=== PATIENT | male | born 1965 | race Caucasian/White ===

== ENCOUNTER 2019-04-04 08:43 | Inpatient (IN) | payer OTHER ==
[~2019-04-04] VITALS: Ht 193 cm; Wt 113.9 kg
[~2019-04-04 08:43] MED LIST: ASPI-612 PO; ATOR10TA60 PO; BENZ-8 PO; FENO160T PO; GLIP5TAB10 PO; INSU100I17 SQ; INSU100I27 SQ; LEVO500T59 PO; LISI-334 PO; METF500T16 PO; METO-239 PO; PRAS10TA9 PO
[2019-04-04] MEDS ORDERED: TAMSULOSIN 0.4 MG CAP.ER.24H. PO ONE (09:00)
[2019-04-04] MEDS ORDERED: ACETAMINOPHEN 500 MG TABLET PO ONE (09:00)
[2019-04-04] MEDS ORDERED: IV NORMAL SALINE 1000ML BAG 1,000 ML IV ONE ×3 (09:00→10:45)
[2019-04-04] MEDS ORDERED: ONDANSETRON PF 4 MG/2 ML VIAL. IV ONE (09:00)
--- NOTE | 2019-04-04 09:17 | PHYS DOC ---
Past Medical History Past Medical History: CAD, Diabetes-Type II, High Cholesterol, Hypertension Past Surgical History: Other Additional Past Surgical Histo: R ARM,CARDIAC STENTS X 3 Alcohol Use: None Drug Use: None Adult General Chief Complaint Chief Complaint: PAIN ON URINATION HPI HPI Patient is a 53 year old female with a history of diabetes type 2, hypertension, high cholesterol, CAD with stent placement in November 2018 who presents to the ED today complaining he is not feeling well. Patient states yesterday his had difficulty voiding, he states he has been voiding small amounts of urine since 2 AM waking up several times in the night to urinate. He is also complaining of dry heaving and left lower quadrant abdominal pain that occurred yesterday, he states right now in the ED he does not have any pain. Denies any fever. Denies any chest pain or shortness of breath. Review of Systems Review of Systems Constitutional: Denies fever or chills [] Eyes: Denies change in visual acuity, redness, or eye pain [] HENT: Denies nasal congestion or sore throat [] Respiratory: Denies cough or shortness of breath [] Cardiovascular: No additional information not addressed in HPI [] GI: Reports left lower quadrant abdominal pain, nausea/dry heaving, denies vomiting, bloody stools or diarrhea [] : Reports difficulty voiding, urgency, denies dysuria or hematuria [] Musculoskeletal: Denies back pain or joint pain [] Integument: Denies rash or skin lesions [] Neurologic: Denies headache, focal weakness or sensory changes [] All other systems were reviewed and found to be within normal limits, except as documented in this note. Current Medications Current Medications Current Medications Medications (Trade) Dose Ordered Sig/Tristen Start Time Stop Time Status Last Admin Dose Admin Acetaminophen (Tylenol) 650 mg PRN Q4HRS PRN 04/04/19 10:45 04/05/19 10:44 Ciprofloxacin/ Dextrose 200 ml @ 200 mls/hr 1X ONCE 04/04/19 10:45 04/04/19 11:44 04/04/19 10:21 200 MLS/HR Fentanyl Citrate (Fentanyl 2ml Vial) 50 mcg PRN Q1HR PRN 04/04/19 10:45 04/05/19 10:44 Ondansetron HCl (Zofran) 4 mg PRN Q8HRS PRN 04/04/19 10:45 04/05/19 10:44 Sodium Chloride 1,000 ml @ 125 mls/hr 1X ONCE 04/04/19 10:45 04/04/19 18:44 Tamsulosin HCl (Flomax) 0.4 mg 1X ONCE 04/04/19 09:00 04/04/19 09:04 DC 04/04/19 09:23 0.4 MG Allergies Allergies Allergies Coded Allergies Type Severity Reaction Last Updated Verified arginine Adverse Reaction Mild N/V 04/04/19 Yes cefixime Adverse Reaction Mild N/V 04/04/19 Yes ceftazidime Adverse Reaction Mild N/V 04/04/19 Yes Physical Exam Physical Exam Constitutional: ill appearing patient, no acute distress, non-toxic appearance. [] HENT: Normocephalic, atraumatic, bilateral external ears normal, oropharynx moist, no oral exudates, nose normal. [] Eyes: PERRLA, EOMI, conjunctiva normal, no discharge. [] Neck: Normal range of motion, no tenderness, supple, no stridor. [] Cardiovascular:Heart rate regular rhythm, no murmur [] Lungs & Thorax: Bilateral breath sounds clear to auscultation [] Abdomen: Obese abdomen. Bowel sounds normal, soft, no tenderness, no masses, no pulsatile masses. [] Skin: Warm, dry, no erythema, no rash. Bruising noted on the left lower quadrant. Back: No tenderness, no CVA tenderness. [] Extremities: No tenderness, no cyanosis, no clubbing, ROM intact, no edema. [] Neurologic: Alert and oriented X 3, normal motor function, normal sensory function, no focal deficits noted. [] Psychologic: Affect normal, judgement normal, mood normal. [] Current Patient Data Vital Signs Vital Signs Date Time Temp Pulse Resp B/P (MAP) Pulse Ox O2 Delivery O2 Flow Rate FiO2 04/04/19 10:43 91 22 144/75 (98) 97 Room Air 04/04/19 08:48 99.1 99.1 Lab Values Laboratory Tests Test 04/04/19 09:08 04/04/19 09:13 White Blood Count 10.9 x10^3/uL (4.0-11.0) Red Blood Count 4.92 x10^6/uL (4.30-5.70) Hemoglobin 13.9 g/dL (13.0-17.5) Hematocrit 39.4 % (39.0-53.0) Mean Corpuscular Volume 80 fL (79-100) Mean Corpuscular Hemoglobin 28 pg (25-35) Mean Corpuscular Hemoglobin Concent 35 g/dL (31-37) Red Cell Distribution Width 14.1 % (11.5-14.5) Platelet Count 190 x10^3/uL (140-400) Neutrophils (%) (Auto) 80 % (31-73) H Lymphocytes (%) (Auto) 8 % (24-48) L Monocytes (%) (Auto) 12 % (0-9) H Eosinophils (%) (Auto) 0 % (0-3) Basophils (%) (Auto) 0 % (0-3) Neutrophils # (Auto) 8.7 x10^3uL (1.8-7.7) H Lymphocytes # (Auto) 0.9 x10^3/uL (1.0-4.8) L Monocytes # (Auto) 1.3 x10^3/uL (0.0-1.1) H Eosinophils # (Auto) 0.0 x10^3/uL (0.0-0.7) Basophils # (Auto) 0.0 x10^3/uL (0.0-0.2) Prothrombin Time 13.7 SEC (11.7-14.0) Prothrombin Time INR 1.1 (0.8-1.1) PTT 35 SEC (24-38) D-Dimer (Taisha) 1.59 ug/mlFEU (0.00-0.50) H Sodium Level 124 mmol/L (136-145) L Potassium Level 3.9 mmol/L (3.5-5.1) Chloride Level 89 mmol/L (98-107) L Carbon Dioxide Level 20 mmol/L (21-32) L Anion Gap 15 (6-14) H Blood Urea Nitrogen 16 mg/dL (8-26) Creatinine 1.0 mg/dL (0.7-1.3) Estimated GFR (Cockcroft-Gault) 78.5 BUN/Creatinine Ratio 16 (6-20) Glucose Level 215 mg/dL (70-99) H Lactic Acid Level 1.0 mmol/L (0.4-2.0) Calcium Level 8.4 mg/dL (8.5-10.1) L Magnesium Level 2.1 mg/dL (1.8-2.4) Total Bilirubin 0.6 mg/dL (0.2-1.0) Aspartate Amino Transferase (AST) 26 U/L (15-37) Alanine Aminotransferase (ALT) 35 U/L (16-63) Alkaline Phosphatase 49 U/L (46-116) Creatine Kinase 90 U/L (39-308) Creatine Kinase MB (Mass) < 0.5 ng/mL (0.0-3.6) Creatine Kinase MB Relative Index % (0-4) Troponin I Quantitative < 0.017 ng/mL (0.000-0.055) YJ-Hmp-X-Type Natriuretic Peptide 229 pg/mL (0-124) H Total Protein 6.7 g/dL (6.4-8.2) Albumin 3.1 g/dL (3.4-5.0) L Albumin/Globulin Ratio 0.9 (1.0-1.7) L Lipase 298 U/L (73-393) Urine Collection Type Unknown Urine Color Yellow Urine Clarity Hazy Urine pH 6.5 Urine Specific [place] 1.010 Urine Protein 100 mg/dL (NEG-TRACE) Urine Glucose (UA) 500 mg/dL (NEG) Urine Ketones (Stick) 15 mg/dL (NEG) Urine Blood Large (NEG) Urine Nitrite Negative (NEG) Urine Bilirubin Negative (NEG) Urine Urobilinogen Dipstick 0.2 mg/dL (0.2 mg/dL) Urine Leukocyte Esterase Moderate (NEG) Urine RBC 20-40 /HPF (0-2) Urine WBC >40 /HPF (0-4) Urine Bacteria Moderate /HPF (0-FEW) Laboratory Tests 04/04/19 09:08 Laboratory Tests 04/04/19 09:08 EKG EKG 09:[address] Irwin sinus tachycardia HR 107 anteroseptal lead inversion hx of STEMI in November. [] Radiology/Procedures Radiology/Procedures []PROCEDURE: PORTABLE CHEST 1V Portable chest, 04/04/2019: HISTORY: Fever Comparison is made to a study from 12/07/2018. The heart size and pulmonary vascularity are within normal limits. There is a possible stent overlying the left side of the heart. There are scattered calcified granulomata in the lungs. No acute infiltrate is seen. There is no evidence of pleural fluid. IMPRESSION: No acute cardiopulmonary abnormality is detected. Electronically signed by: Andrew Booth MD (04/04/2019 9:35 AM) [facility] DICTATED and SIGNED BY: ANDREW BOOTH MD DATE: 04/04/19 0935 Course & Med Decision Making Course & Med Decision Making Pertinent Labs and Imaging studies reviewed. (See chart for details) This is a 53-year-old male patient presenting to the ED today complaining of difficulty urinating since 2 AM this morning. On arrival to the ED temperature 99.1 heart rate 113, respiration 28 on room air, blood pressure 143/80, O2 sats 100% on room air. CBC with a normal WBC but noted for a left shift. CMP with sodium of 124, glucose of 215 with anion gap of 15, creatinine 1.0, BUN of 16, lactic 1.0. Urine noted for moderate amount of leukocytes and large amount of blood. D-dimer 1.59. Patient is on the second liter of IV fluids. He was also given Flomax and Cipro. He has voided over 300 mL of urine so far. CT of the abdomen and pelvic is pending, CTA chest is pending 10:[address] [place] who accepted patient for admission. 11:11 CT of the abdomen and pelvic was noted for cystitis with ascending infection to the kidneys-pyelonephritis Dragon Disclaimer Dragon Disclaimer This electronic medical record was generated, in whole or in part, using a voice recognition dictation system. Departure Departure Impression: Primary Impression: Hyperglycemia Additional Impressions: Hyponatremia Pyelonephritis Tachycardia Disposition: ADMITTED INPATIENT Condition: STABLE Referrals: GEMMA NOYOLA MD (PCP) Problem Qualifiers CHINMAY KELLEY [employer]ER INSPECTOR Apr 04, 2019 09:17
[2019-04-04 09:22] LABS: BASO % 0 % (0-3); EOS % 0 % (0-3); HEMATOCRIT 39.4 % (39.0-53.0); HEMOGLOBIN 13.9 g/dL (13.0-17.5); LYMPH # 0.9 x10^3/uL (1.0-4.8); LYMPH % 8 % (24-48); MEAN CORPUSCULAR HEMOGLOBIN 28 pg (25-35); MEAN CORPUSCULAR HGB CONC 35 g/dL (31-37); MEAN CORPUSCULAR VOLUME 80 fL (79-100); MONO # 1.3 x10^3/uL (0.0-1.1); MONO % 12 % (0-9); NEUT # 8.7 x10^3uL (1.8-7.7); NEUT % 80 % (31-73); PLATELET COUNT 190 x10^3/uL (140-400); RED BLOOD COUNT 4.92 x10^6/uL (4.30-5.70); RED CELL DISTRIBUTION WIDTH 14.1 % (11.5-14.5); WHITE BLOOD COUNT 10.9 x10^3/uL (4.0-11.0)
[2019-04-04 09:32] LABS: COLOR,URINE YELLOW
[2019-04-04 09:33] LABS: BILIRUBIN,URINE NEGATIVE (NEG); CLARITY,URINE HAZY; NITRITE,URINE NEGATIVE (NEG); PH,URINE 6.5; PROTEIN,URINE 100 mg/dL (NEG-TRACE); UROBILINOGEN,URINE 0.2 mg/dL (0.2 mg/dL)
[2019-04-04 09:33] LABS: PROTHROMBIN TIME PATIENT 13.7 SEC (11.7-14.0)
[2019-04-04 09:34] LABS: CALCIUM 8.4 mg/dL (8.5-10.1); GFR 78.5; POTASSIUM 3.9 mmol/L (3.5-5.1)
[2019-04-04 09:34] LABS: BACTERIA,URINE MODERATE /HPF (0-FEW); RBC,URINE 20-40 /HPF (0-2); WBC,URINE >40 /HPF (0-4)
--- NOTE | 2019-04-04 09:38 | RAD ---
Portable chest, 04/04/2019: HISTORY: Fever Comparison is made to a study from 12/07/2018. The heart size and pulmonary vascularity are within normal limits. There is a possible stent overlying the left side of the heart. There are scattered calcified granulomata in the lungs. No acute infiltrate is seen. There is no evidence of pleural fluid. IMPRESSION: No acute cardiopulmonary abnormality is detected. Electronically signed by: Andrew Booth MD (04/04/2019 9:35 AM) [facility]
[2019-04-04 09:40] LABS: ALBUMIN 3.1 g/dL (3.4-5.0); ALBUMIN/GLOBULIN RATIO 0.9 (1.0-1.7); MAGNESIUM 2.1 mg/dL (1.8-2.4); TOTAL BILIRUBIN 0.6 mg/dL (0.2-1.0); TOTAL PROTEIN 6.7 g/dL (6.4-8.2)
[2019-04-04 09:56] LABS: CREATINE KINASE 90 U/L (39-308)
--- NOTE | 2019-04-04 10:33 | EKG ---
[facility] [address] [place] [address] Test Date: 2019-04-04 Test Time: 09:00:46 Pat Name: ABEBA KESSLER Department: Room: Gender: Clinical Trials Assistant: : [id number] Requested By: CHINMAY KELLEY Order Number: [id number] Reading MD: Measurements Intervals [place] Rate: 107 P: -1 MS: 166 QRS: 19 QRSD: 98 T: 17 QT: 330 QTc: 445 Interpretive Statements SINUS TACHYCARDIA OTHERWISE NORMAL ECG No previous ECG available for comparison
[2019-04-04] MEDS ORDERED: ACETAMINOPHEN 325 MG TABLET. PO PRN (10:45)
[2019-04-04] MEDS ORDERED: ONDANSETRON PF 4 MG/2 ML VIAL. IV PRN (10:45)
[2019-04-04] MEDS ORDERED: fentaNYL PF VIAL 100 MCG/2 ML VIAL IV PRN (10:45)
[2019-04-04] MEDS ORDERED: CIPROFLOXACIN 400MG PREMIX 200 ML IV ONE (10:45)
--- NOTE | 2019-04-04 11:00 | RAD ---
EXAM: CT Abdomen and Pelvis without IV contrast CLINICAL HISTORY: Flank pain, evaluate for nephrolithiasis. Pelvic pain.. COMPARISON: none TECHNIQUE: Helical CT of the abdomen and pelvis without intravenous contrast. Axial, coronal and sagittal reformatted images were generated. PQRS compliance statement - One or more of the following individualized dose reduction techniques were utilized for this study: 1. Automated exposure control 2. Adjustment of the mA and/or kV according to patient size 3. Use of iterative reconstruction technique FINDINGS: Lack of intravenous contrast limits evaluation of solid organs, vasculature, and lymph nodes. Lower chest: Dependent opacities in the lower lobes bilaterally likely atelectasis. Calcified granuloma in the bilateral lower lobes. Abdomen and Pelvis: Liver is enlarged measuring approximately 23 cm in length. No definite liver lesion Gallbladder is normal. No biliary ductal dilatation. Pancreas is unremarkable. Adrenal glands are normal. Spleen is unremarkable. Kidneys are grossly normal in size and shape. No renal tract calculus. Diffuse fat infiltration about the bladder wall, bilateral ureters and bilateral kidneys may be seen with cystitis and ascending infection-pyelonephritis. No hydronephrosis or hydroureter. Fat-containing right inguinal hernia. Fat-containing small periumbilical hernia. No small or large bowel dilatation. Appendix is normal. No evidence of bowel obstruction. No abdominal or pelvic ascites. Abdominal pelvic lymphadenopathy. Bones: Osseous structures are grossly unremarkable. IMPRESSION: 1. Inflammatory changes and wall thickening of the bladder as well as the ureters and kidneys bilaterally is most consistent with cystitis and ascending infection- pyelonephritis. 2. Hepatomegaly Electronically signed by: Enrique Navarro MD (04/04/2019 10:57 AM) [id number]
[2019-04-04] MEDS ORDERED: IOHEXOL 350 MG/ML 100 ML VIAL. IV ONE (11:15)
[2019-04-04] MEDS ORDERED: CONTRAST GIVEN. MC PRN (11:30)
[2019-04-04] MEDS ORDERED: DEXTROSE 50% 25 GM / 50ML DISP.SYRIN. IV PRN (11:45)
[2019-04-04] MEDS: IV NORMAL SALINE 1000ML BAG 1,000 ML IV SCH ×2 (11:45→20:52)
--- NOTE | 2019-04-04 11:52 | RAD ---
EXAM: CT chest with contrast - pulmonary embolus protocol CLINICAL HISTORY: Shortness of breath, evaluate for pulmonary embolus. COMPARISON: None. TECHNIQUE: CT of the chest following the administration of intravenous contrast during the pulmonary arterial phase. Axial, coronal and sagittal reformatted images were generated including MIP images. ---PQRS compliance statement - One or more of the following individualized dose reduction techniques were utilized for this study: 1. Automated exposure control 2. Adjustment of the mA and/or kV according to patient size 3. Use of iterative reconstruction technique--- FINDINGS: CHEST: Diagnostic quality: Suboptimal. Pulmonary emboli: No pulmonary emboli to the level of the lobar branches. More peripheral vessels are not well assessed. Right heart strain: None Pulmonary arteries: Normal in caliber. Heart is mildly enlarged. Coronary artery calcifications are seen. No pericardial effusion. No pleural effusion or pneumothorax. No mediastinal or hilar lymphadenopathy. No axillary lymphadenopathy. Dependent opacities in the lower lobes bilaterally likely scarring/atelectasis. Calcified granulomas are seen bilaterally. Visualized Upper abdomen: Visualized upper abdomen is grossly unremarkable. Bones: Degenerative changes of the spine are seen. IMPRESSION: Exam is limited by contrast bolus timing. Within these constraints no pulmonary embolus is seen to the level of the lobar branches. The peripheral vessels are not well assessed. Electronically signed by: Enrique Navarro MD (04/04/2019 11:49 AM) [id number]
[2019-04-04] MEDS: INSULIN LISPRO 300 UNITS/3 ML INSULN.PEN. SQ SCH ×2 (12:00→18:17)
[2019-04-04] MEDS ORDERED: METF500T9 PO (12:54)
[2019-04-04 12:59] VITALS: BP 148/79
[2019-04-04 15:30] VITALS: BP 151/79
[2019-04-04] MEDS ORDERED: METF500T16 PO (16:03)
[2019-04-04] MEDS ORDERED: ATOR40TA59 PO (16:03)
--- NOTE | 2019-04-04 16:09 | PDOC ---
PROGRESS NOTES Subjective Subjective Patient reports he has been urinating without difficulty. Just feels tired. Objective Objective Vital Signs Date Time Temp Pulse Resp B/P (MAP) Pulse Ox O2 Delivery O2 Flow Rate FiO2 04/04/19 15:30 99.0 84 18 151/79 (103) 96 Room Air 99.0 Physical Exam Abdomen: Normal bowel sounds, Soft, No tenderness Heart: Regular rate Extremities: No edema General: Alert, Oriented X3, No acute distress Lungs: Clear to auscultation Assessment Assessment Problems Medical Problems: (1) Hyperglycemia Status: Acute (2) Hyponatremia Status: Acute (3) Pyelonephritis Status: Acute (4) Tachycardia Status: Acute (5) UTI (urinary tract infection) Status: Acute Plan Plan of Care 1. Sepsis with UTI - started on abx, urine and blood cultures pending. Urinary hesitancy resolved. 2. hyponatremia - patient is not on a diuretic that could cause this. Did try drinking a lot of water early this morning to help with urination. Has not had hyponatremia on office labs. Continue IV NS overnight and check lab in AM. 3. DM2 - has been controlled, continue home medication. 4. HTN - resume home meds. 5. hx CAD - stable, continue home meds. 6. BPH - patient reports he has chronic nocturia x2. Recent PSA in our office was WNL. Will start Flomax to help with this. Comment Review of Relevant I have reviewed the following items lety (where applicable) has been applied. Labs Laboratory Tests Test 04/04/19 09:08 04/04/19 09:13 04/04/19 12:26 04/04/19 13:27 White Blood Count 10.9 x10^3/uL (4.0-11.0) Red Blood Count 4.92 x10^6/uL (4.30-5.70) Hemoglobin 13.9 g/dL (13.0-17.5) Hematocrit 39.4 % (39.0-53.0) Mean Corpuscular Volume 80 fL (79-100) Mean Corpuscular Hemoglobin 28 pg (25-35) Mean Corpuscular Hemoglobin Concent 35 g/dL (31-37) Red Cell Distribution Width 14.1 % (11.5-14.5) Platelet Count 190 x10^3/uL (140-400) Neutrophils (%) (Auto) 80 % (31-73) Lymphocytes (%) (Auto) 8 % (24-48) Monocytes (%) (Auto) 12 % (0-9) Eosinophils (%) (Auto) 0 % (0-3) Basophils (%) (Auto) 0 % (0-3) Neutrophils # (Auto) 8.7 x10^3uL (1.8-7.7) Lymphocytes # (Auto) 0.9 x10^3/uL (1.0-4.8) Monocytes # (Auto) 1.3 x10^3/uL (0.0-1.1) Eosinophils # (Auto) 0.0 x10^3/uL (0.0-0.7) Basophils # (Auto) 0.0 x10^3/uL (0.0-0.2) Prothrombin Time 13.7 SEC (11.7-14.0) Prothromb Time International Ratio 1.1 (0.8-1.1) Activated Partial Thromboplast Time 35 SEC (24-38) D-Dimer (Taisha) 1.59 ug/mlFEU (0.00-0.50) Sodium Level 124 mmol/L (136-145) Potassium Level 3.9 mmol/L (3.5-5.1) Chloride Level 89 mmol/L (98-107) Carbon Dioxide Level 20 mmol/L (21-32) Anion Gap 15 (6-14) Blood Urea Nitrogen 16 mg/dL (8-26) Creatinine 1.0 mg/dL (0.7-1.3) Estimated GFR (Cockcroft-Gault) 78.5 BUN/Creatinine Ratio 16 (6-20) Glucose Level 215 mg/dL (70-99) Lactic Acid Level 1.0 mmol/L (0.4-2.0) 1.0 mmol/L (0.4-2.0) Calcium Level 8.4 mg/dL (8.5-10.1) Magnesium Level 2.1 mg/dL (1.8-2.4) Total Bilirubin 0.6 mg/dL (0.2-1.0) Aspartate Amino Transf (AST/SGOT) 26 U/L (15-37) Alanine Aminotransferase (ALT/SGPT) 35 U/L (16-63) Alkaline Phosphatase 49 U/L (46-116) Creatine Kinase 90 U/L (39-308) Creatine Kinase MB (Mass) < 0.5 ng/mL (0.0-3.6) Creatine Kinase MB Relative Index % (0-4) Troponin I Quantitative < 0.017 ng/mL (0.000-0.055) RB-Ace-A-Type Natriuretic Peptide 229 pg/mL (0-124) Total Protein 6.7 g/dL (6.4-8.2) Albumin 3.1 g/dL (3.4-5.0) Albumin/Globulin Ratio 0.9 (1.0-1.7) Lipase 298 U/L (73-393) Urine Collection Type Unknown Urine Color Yellow Urine Clarity Hazy Urine pH 6.5 Urine Specific [place] 1.010 Urine Protein 100 mg/dL (NEG-TRACE) Urine Glucose (UA) 500 mg/dL (NEG) Urine Ketones (Stick) 15 mg/dL (NEG) Urine Blood Large (NEG) Urine Nitrite Negative (NEG) Urine Bilirubin Negative (NEG) Urine Urobilinogen Dipstick 0.2 mg/dL (0.2 mg/dL) Urine Leukocyte Esterase Moderate (NEG) Urine RBC 20-40 /HPF (0-2) Urine WBC >40 /HPF (0-4) Urine Bacteria Moderate /HPF (0-FEW) Glucose (Fingerstick) 201 mg/dL (70-99) Laboratory Tests Test 04/04/19 09:08 04/04/19 09:13 04/04/19 12:26 04/04/19 13:27 White Blood Count 10.9 x10^3/uL (4.0-11.0) Red Blood Count 4.92 x10^6/uL (4.30-5.70) Hemoglobin 13.9 g/dL (13.0-17.5) Hematocrit 39.4 % (39.0-53.0) Mean Corpuscular Volume 80 fL (79-100) Mean Corpuscular Hemoglobin 28 pg (25-35) Mean Corpuscular Hemoglobin Concent 35 g/dL (31-37) Red Cell Distribution Width 14.1 % (11.5-14.5) Platelet Count 190 x10^3/uL (140-400) Neutrophils (%) (Auto) 80 % (31-73) Lymphocytes (%) (Auto) 8 % (24-48) Monocytes (%) (Auto) 12 % (0-9) Eosinophils (%) (Auto) 0 % (0-3) Basophils (%) (Auto) 0 % (0-3) Neutrophils # (Auto) 8.7 x10^3uL (1.8-7.7) Lymphocytes # (Auto) 0.9 x10^3/uL (1.0-4.8) Monocytes # (Auto) 1.3 x10^3/uL (0.0-1.1) Eosinophils # (Auto) 0.0 x10^3/uL (0.0-0.7) Basophils # (Auto) 0.0 x10^3/uL (0.0-0.2) Prothrombin Time 13.7 SEC (11.7-14.0) Prothromb Time International Ratio 1.1 (0.8-1.1) Activated Partial Thromboplast Time 35 SEC (24-38) D-Dimer (Taisha) 1.59 ug/mlFEU (0.00-0.50) Sodium Level 124 mmol/L (136-145) Potassium Level 3.9 mmol/L (3.5-5.1) Chloride Level 89 mmol/L (98-107) Carbon Dioxide Level 20 mmol/L (21-32) Anion Gap 15 (6-14) Blood Urea Nitrogen 16 mg/dL (8-26) Creatinine 1.0 mg/dL (0.7-1.3) Estimated GFR (Cockcroft-Gault) 78.5 BUN/Creatinine Ratio 16 (6-20) Glucose Level 215 mg/dL (70-99) Lactic Acid Level 1.0 mmol/L (0.4-2.0) 1.0 mmol/L (0.4-2.0) Calcium Level 8.4 mg/dL (8.5-10.1) Magnesium Level 2.1 mg/dL (1.8-2.4) Total Bilirubin 0.6 mg/dL (0.2-1.0) Aspartate Amino Transf (AST/SGOT) 26 U/L (15-37) Alanine Aminotransferase (ALT/SGPT) 35 U/L (16-63) Alkaline Phosphatase 49 U/L (46-116) Creatine Kinase 90 U/L (39-308) Creatine Kinase MB (Mass) < 0.5 ng/mL (0.0-3.6) Creatine Kinase MB Relative Index % (0-4) Troponin I Quantitative < 0.017 ng/mL (0.000-0.055) WM-Hrl-N-Type Natriuretic Peptide 229 pg/mL (0-124) Total Protein 6.7 g/dL (6.4-8.2) Albumin 3.1 g/dL (3.4-5.0) Albumin/Globulin Ratio 0.9 (1.0-1.7) Lipase 298 U/L (73-393) Urine Collection Type Unknown Urine Color Yellow Urine Clarity Hazy Urine pH 6.5 Urine Specific [place] 1.010 Urine Protein 100 mg/dL (NEG-TRACE) Urine Glucose (UA) 500 mg/dL (NEG) Urine Ketones (Stick) 15 mg/dL (NEG) Urine Blood Large (NEG) Urine Nitrite Negative (NEG) Urine Bilirubin Negative (NEG) Urine Urobilinogen Dipstick 0.2 mg/dL (0.2 mg/dL) Urine Leukocyte Esterase Moderate (NEG) Urine RBC 20-40 /HPF (0-2) Urine WBC >40 /HPF (0-4) Urine Bacteria Moderate /HPF (0-FEW) Glucose (Fingerstick) 201 mg/dL (70-99) Medications Current Medications Sodium Chloride 1,000 ml @ 1,000 mls/hr 1X ONCE IV Last administered on 04/04/19 09:17; Start 04/04/19 at 09:00; Stop 04/04/19 at 09:59; Status DC Ondansetron HCl (Zofran) 4 mg 1X ONCE IV Last administered on 04/04/19 09:22; Start 04/04/19 at 09:00; Stop 04/04/19 at 09:04; Status DC Acetaminophen (Tylenol) 1,000 mg 1X ONCE PO Last administered on 04/04/19 09:23; Start 04/04/19 at 09:00; Stop 04/04/19 at 09:04; Status DC Tamsulosin HCl (Flomax) 0.4 mg 1X ONCE PO Last administered on 04/04/19 09:23; Start 04/04/19 at 09:00; Stop 04/04/19 at 09:04; Status DC Sodium Chloride 1,000 ml @ 1,000 mls/hr 1X ONCE IV Last administered on 04/04/19at 10:19; Start 04/04/19 at 10:15; Stop 04/04/19 at 11:14; Status DC Ciprofloxacin/ Dextrose 200 ml @ 200 mls/hr 1X ONCE IV Last administered on 04/04/19at 10:21; Start 04/04/19 at 10:45; Stop 04/04/19 at 11:44; Status DC Ondansetron HCl (Zofran) 4 mg PRN Q8HRS PRN IV NAUSEA/VOMITING; Start 04/04/19 at 10:45; Stop 04/05/19 at 10:44 Fentanyl Citrate (Fentanyl 2ml Vial) 50 mcg PRN Q1HR PRN IV PAIN Last administered on 04/04/19at 12:42; Start 04/04/19 at 10:45; Stop 04/05/19 at 10:44 Acetaminophen (Tylenol) 650 mg PRN Q4HRS PRN PO FEVER; Start 04/04/19 at 10:45; Stop 04/05/19 at 10:44 Sodium Chloride 1,000 ml @ 125 mls/hr 1X ONCE IV Last administered on 04/04/19at 12:43; Start 04/04/19 at 10:45; Stop 04/04/19 at 18:44 Iohexol (Omnipaque 350 Mg/ml) 100 ml 1X ONCE IV Last administered on 04/04/19at 11:32; Start 04/04/19 at 11:15; Stop 04/04/19 at 11:17; Status DC Info (CONTRAST GIVEN -- Rx MONITORING) 1 each PRN DAILY PRN MC SEE COMMENTS; Start 04/04/19 at 11:30; Stop 04/06/19 at 11:29 Ciprofloxacin (Cipro) 500 mg BID PO ; Start 04/04/19 at 21:00 Insulin Human Lispro (HumaLOG) 0-9 UNITS TIDWMEALS SQ ; Start 04/04/19 at 12:00 Dextrose (Dextrose 50%-Water Syringe) 12.5 gm PRN Q15MIN PRN IV SEE COMMENTS; Start 04/04/19 at 11:45 Sodium Chloride 1,000 ml @ 100 mls/hr Q10H IV ; Start 04/04/19 at 11:45 Active Scripts Active Atorvastatin Calcium 40 Mg Tablet 1 Tab PO DAILY Metformin Hcl 500 Mg Tablet 500 Mg PO BIDWMEALS 30 Days Lisinopril 20 Mg Tablet 1 Tab PO DAILY 30 Days Fenofibrate 160 Mg Tablet 1 Tab PO DAILY 30 Days Glipizide 5 Mg Tablet 5 Mg PO BIDBFRMEAL 30 Days Aspirin Ec (Aspirin) 81 Mg Tablet.dr 81 Mg PO DAILYWBKFT 30 Days Metoprolol Succinate ( Xl ) (Metoprolol Succinate) 25 Mg Tab.er.24h 25 Mg PO DAILY 30 Days Effient (Prasugrel Hcl) 10 Mg Tablet 10 Mg PO DAILYWBKFT MDD 30 30 Days Vitals/I & O Vital Sign - Last 24 Hours 04/04/19 04/04/19 04/04/19 04/04/19 08:48 09:22 09:52 10:22 Temp 99.1 99.1 Pulse 113 106 98 94 Resp 28 24 25 23 B/P (MAP) 143/80 (101) 141/77 (98) 133/73 (93) 134/71 (92) Pulse Ox 100 96 98 97 O2 Delivery Room Air Room Air Room Air Room Air 04/04/19 04/04/19 04/04/19 04/04/19 10:43 11:13 11:34 12:42 Pulse 91 83 84 Resp 22 22 21 18 B/P (MAP) 144/75 (98) 137/78 (97) 141/83 (102) Pulse Ox 97 99 98 98 O2 Delivery Room Air Room Air Room Air Room Air 04/04/19 04/04/19 12:59 15:30 Temp 98.0 99.0 98.0 99.0 Pulse 72 84 Resp 20 18 B/P (MAP) 148/79 (102) 151/79 (103) Pulse Ox 98 96 O2 Delivery Room Air Room Air GEMMA NOYOLA MD Apr 04, 2019 16:09
--- NOTE | 2019-04-04 16:35 | HP ---
ADMIT DATE: 04/04/2019 CHIEF COMPLAINT: Dysuria and urinary hesitancy. HISTORY OF PRESENT ILLNESS: The patient is a 53-year-old male, who presented to the Emergency Room with the above complaint. He reported the onset of symptoms early in the morning of admission. He woke up feeling that he had to urinate, but was unable to pass any urine. He voided only very small amounts. He tried drinking a good amount of water to help with this, but was still not able to pass enough urine. He also had some lower abdominal pain and nausea. When seen in the Emergency Room, he was found to be mildly ill appearing. He was given one dose of Flomax and was able to urinate. Urine specimen showed evidence of infection with white blood cells greater than 40. He was also found to be hyponatremic with sodium of 124, treatment was started and he was admitted for further care. PAST MEDICAL HISTORY: Coronary artery disease, hypertension, hyperlipidemia, diabetes mellitus type 2. PAST SURGICAL HISTORY: Right upper extremity ORIF in 08/1994, cardiac stent placement in 11/2018. ALLERGIES: The patient is allergic to ARGININE, CEFIXIME and CEFTAZIDIME. HOME MEDICATIONS: Aspirin 81 mg daily, atorvastatin 40 mg daily, fenofibrate 160 mg daily, glipizide 5 mg b.i.d., lisinopril 20 mg daily, metformin 500 mg b.i.d., Toprol-XL 25 mg daily, Effient 10 mg daily. FAMILY HISTORY: Noncontributory. SOCIAL HISTORY: The patient is and lives at home with his family. He does not smoke cigarettes or drink alcohol to excess. He works as a logistics supply officer. REVIEW OF SYSTEMS: The patient denies fever or chills. He denies cough or shortness of breath. He denies chest pain or palpitations. He had some nausea with his initial illness this morning, but denies emesis or abdominal pain at this time. His blood sugars had been fairly well controlled at home until the past 1-2 days when they became elevated. He denies other episodes of urinary tract infection. He reports chronic nocturia x 2. PHYSICAL EXAMINATION: GENERAL: The patient is alert and oriented x 3, resting comfortably in bed, in no acute distress. HEENT: PERRL, EOMI, sclerae clear. Oropharynx, mucous membranes moist. NECK: Supple without lymphadenopathy. CHEST: Clear to auscultation. CARDIOVASCULAR: Regular rhythm without murmur. ABDOMEN: Soft, nontender, normoactive bowel sounds are present. EXTREMITIES: Without edema. ASSESSMENT AND PLAN: 1. Sepsis with urinary tract infection. The patient has been started on ciprofloxacin. Blood and urine cultures are pending. His urinary hesitancy resolved with treatment in the Emergency Room and he is now able to urinate without difficulty. 2. Hyponatremia. The patient is not on a diuretic that could cause this and he has not had hyponatremia on office labs. He did try drinking a lot of water early this morning to help with his urination and it is possible that this is what led to the hyponatremia. We will continue IV normal saline overnight and recheck lab in the morning. 3. Diabetes mellitus type 2, this has been controlled. Continue home medication, Sliding scale insulin has also been ordered. 4. Hypertension. Resume home medication. 5. History of coronary artery disease, this has been stable. Continue his usual medications. 6. Benign prostatic hypertrophy. The patient reports he does have chronic nocturia x 2. Recent PSA in our office was within normal limits. We will start him on daily Flomax to help with his symptoms. GEMMA NOYOLA MD DR: JYOTI/aden JOB#: [id number] / [id number] JEANNETTE
[2019-04-04] MEDS: ACETAMINOPHEN 500 MG TABLET PO PRN ×2 (16:48→23:37)
[2019-04-04] MEDS: glipiZIDE 5 MG TABLET PO SCH (16:49)
[2019-04-04 19:05] VITALS: BP 117/74
[2019-04-04] MEDS: ATORVASTATIN CALCIUM 40 MG TABLET. PO SCH (20:52)
[2019-04-04] MEDS: CIPROFLOXACIN HCL 250 MG TABLET. PO SCH (20:53)
[2019-04-04] MEDS: TAMSULOSIN 0.4 MG CAP.ER.24H. PO SCH (20:53)
[2019-04-04 23:44] VITALS: BP 109/71
[2019-04-05 03:05] VITALS: BP 113/69
[2019-04-05 06:11] LABS: BASO % 0 % (0-3); EOS % 0 % (0-3); HEMATOCRIT 36.5 % (39.0-53.0); HEMOGLOBIN 12.6 g/dL (13.0-17.5); LYMPH # 1.3 x10^3/uL (1.0-4.8); LYMPH % 17 % (24-48); MEAN CORPUSCULAR HEMOGLOBIN 28 pg (25-35); MEAN CORPUSCULAR HGB CONC 35 g/dL (31-37); MEAN CORPUSCULAR VOLUME 82 fL (79-100); MONO % 13 % (0-9); NEUT # 5.3 x10^3uL (1.8-7.7); NEUT % 70 % (31-73); PLATELET COUNT 174 x10^3/uL (140-400); RED BLOOD COUNT 4.45 x10^6/uL (4.30-5.70); RED CELL DISTRIBUTION WIDTH 14.3 % (11.5-14.5); WHITE BLOOD COUNT 7.6 x10^3/uL (4.0-11.0)
[2019-04-05 06:34] LABS: ALBUMIN 2.5 g/dL (3.4-5.0); ALBUMIN/GLOBULIN RATIO 0.6 (1.0-1.7); CALCIUM 8.5 mg/dL (8.5-10.1); GFR 78.5; POTASSIUM 4.2 mmol/L (3.5-5.1); TOTAL BILIRUBIN 0.4 mg/dL (0.2-1.0); TOTAL PROTEIN 6.6 g/dL (6.4-8.2)
[2019-04-05 07:00] VITALS: BP 129/73
[2019-04-05] MEDS: glipiZIDE 5 MG TABLET PO SCH ×2 (07:13→16:59)
[2019-04-05] MEDS: ACETAMINOPHEN 500 MG TABLET PO PRN ×2 (07:13→20:35)
[2019-04-05] MEDS: PRASUGREL 10 MG TABLET. PO SCH (08:05)
[2019-04-05] MEDS: FENOFIBRATE,MICRONIZED 134 MG CAPSULE PO SCH (08:05)
[2019-04-05] MEDS: CIPROFLOXACIN HCL 250 MG TABLET. PO SCH ×2 (08:05→20:34)
[2019-04-05] MEDS: LISINOPRIL 20 MG TABLET PO SCH (08:06)
[2019-04-05] MEDS: ASPIRIN ENTERIC COATED 81 MG TABLET.DR. PO SCH (08:06)
[2019-04-05] MEDS: METOPROLOL SUCC 24HR ER 25 MG TAB.ER.24H. PO SCH (08:06)
[2019-04-05] MEDS: INSULIN LISPRO 300 UNITS/3 ML INSULN.PEN. SQ SCH ×3 (08:08→17:01)
--- NOTE | 2019-04-05 09:40 | PDOC ---
PROGRESS NOTES Subjective Subjective Patient feels much better. Tolerating diet. still weak. Objective Objective Vital Signs Date Time Temp Pulse Resp B/P (MAP) Pulse Ox O2 Delivery O2 Flow Rate FiO2 04/05/19 08:06 79 129/73 04/05/19 07:21 Room Air 04/05/19 07:00 98.6 18 96 98.6 Intake and Output 04/05/19 07:00 Intake Total 4800 ml Output Total 675 ml Balance 4125 ml Intake Oral 1400 ml IV Total 2200 ml Blood Product IV Normal Saline Flush 1200 ml Output Urine Total 675 ml # Voids 12 Physical Exam Abdomen: Normal bowel sounds Heart: Regular rate Extremities: No edema General: Alert Lungs: Clear to auscultation Assessment Assessment Problems Medical Problems: (1) Hyperglycemia Status: Acute (2) Hyponatremia Status: Acute (3) Pyelonephritis Status: Acute (4) Tachycardia Status: Acute (5) UTI (urinary tract infection) Status: Acute 1. Sepsis with UTI 2. hyponatremia 3. DM2 4. HTN 5. hx CAD 6. BPH Plan Plan of Care Continue IVF Continue IV antibx await clx Continue Flomax Increase activity Follow labs Comment Review of Relevant I have reviewed the following items lety (where applicable) has been applied. Labs Laboratory Tests Test 04/04/19 09:08 04/04/19 09:13 04/04/19 12:26 04/04/19 13:27 White Blood Count 10.9 x10^3/uL (4.0-11.0) Red Blood Count 4.92 x10^6/uL (4.30-5.70) Hemoglobin 13.9 g/dL (13.0-17.5) Hematocrit 39.4 % (39.0-53.0) Mean Corpuscular Volume 80 fL (79-100) Mean Corpuscular Hemoglobin 28 pg (25-35) Mean Corpuscular Hemoglobin Concent 35 g/dL (31-37) Red Cell Distribution Width 14.1 % (11.5-14.5) Platelet Count 190 x10^3/uL (140-400) Neutrophils (%) (Auto) 80 % (31-73) Lymphocytes (%) (Auto) 8 % (24-48) Monocytes (%) (Auto) 12 % (0-9) Eosinophils (%) (Auto) 0 % (0-3) Basophils (%) (Auto) 0 % (0-3) Neutrophils # (Auto) 8.7 x10^3uL (1.8-7.7) Lymphocytes # (Auto) 0.9 x10^3/uL (1.0-4.8) Monocytes # (Auto) 1.3 x10^3/uL (0.0-1.1) Eosinophils # (Auto) 0.0 x10^3/uL (0.0-0.7) Basophils # (Auto) 0.0 x10^3/uL (0.0-0.2) Prothrombin Time 13.7 SEC (11.7-14.0) Prothromb Time International Ratio 1.1 (0.8-1.1) Activated Partial Thromboplast Time 35 SEC (24-38) D-Dimer (Taisha) 1.59 ug/mlFEU (0.00-0.50) Sodium Level 124 mmol/L (136-145) Potassium Level 3.9 mmol/L (3.5-5.1) Chloride Level 89 mmol/L (98-107) Carbon Dioxide Level 20 mmol/L (21-32) Anion Gap 15 (6-14) Blood Urea Nitrogen 16 mg/dL (8-26) Creatinine 1.0 mg/dL (0.7-1.3) Estimated GFR (Cockcroft-Gault) 78.5 BUN/Creatinine Ratio 16 (6-20) Glucose Level 215 mg/dL (70-99) Lactic Acid Level 1.0 mmol/L (0.4-2.0) 1.0 mmol/L (0.4-2.0) Calcium Level 8.4 mg/dL (8.5-10.1) Magnesium Level 2.1 mg/dL (1.8-2.4) Total Bilirubin 0.6 mg/dL (0.2-1.0) Aspartate Amino Transf (AST/SGOT) 26 U/L (15-37) Alanine Aminotransferase (ALT/SGPT) 35 U/L (16-63) Alkaline Phosphatase 49 U/L (46-116) Creatine Kinase 90 U/L (39-308) Creatine Kinase MB (Mass) < 0.5 ng/mL (0.0-3.6) Creatine Kinase MB Relative Index % (0-4) Troponin I Quantitative < 0.017 ng/mL (0.000-0.055) SA-Uiv-S-Type Natriuretic Peptide 229 pg/mL (0-124) Total Protein 6.7 g/dL (6.4-8.2) Albumin 3.1 g/dL (3.4-5.0) Albumin/Globulin Ratio 0.9 (1.0-1.7) Lipase 298 U/L (73-393) Urine Collection Type Unknown Urine Color Yellow Urine Clarity Hazy Urine pH 6.5 Urine Specific [place] 1.010 Urine Protein 100 mg/dL (NEG-TRACE) Urine Glucose (UA) 500 mg/dL (NEG) Urine Ketones (Stick) 15 mg/dL (NEG) Urine Blood Large (NEG) Urine Nitrite Negative (NEG) Urine Bilirubin Negative (NEG) Urine Urobilinogen Dipstick 0.2 mg/dL (0.2 mg/dL) Urine Leukocyte Esterase Moderate (NEG) Urine RBC 20-40 /HPF (0-2) Urine WBC >40 /HPF (0-4) Urine Bacteria Moderate /HPF (0-FEW) Glucose (Fingerstick) 201 mg/dL (70-99) Test 04/04/19 16:25 04/04/19 20:13 04/05/19 05:15 04/05/19 07:44 Glucose (Fingerstick) 182 mg/dL (70-99) 218 mg/dL (70-99) 192 mg/dL (70-99) White Blood Count 7.6 x10^3/uL (4.0-11.0) Red Blood Count 4.45 x10^6/uL (4.30-5.70) Hemoglobin 12.6 g/dL (13.0-17.5) Hematocrit 36.5 % (39.0-53.0) Mean Corpuscular Volume 82 fL (79-100) Mean Corpuscular Hemoglobin 28 pg (25-35) Mean Corpuscular Hemoglobin Concent 35 g/dL (31-37) Red Cell Distribution Width 14.3 % (11.5-14.5) Platelet Count 174 x10^3/uL (140-400) Neutrophils (%) (Auto) 70 % (31-73) Lymphocytes (%) (Auto) 17 % (24-48) Monocytes (%) (Auto) 13 % (0-9) Eosinophils (%) (Auto) 0 % (0-3) Basophils (%) (Auto) 0 % (0-3) Neutrophils # (Auto) 5.3 x10^3uL (1.8-7.7) Lymphocytes # (Auto) 1.3 x10^3/uL (1.0-4.8) Monocytes # (Auto) 1.0 x10^3/uL (0.0-1.1) Eosinophils # (Auto) 0.0 x10^3/uL (0.0-0.7) Basophils # (Auto) 0.0 x10^3/uL (0.0-0.2) Sodium Level 137 mmol/L (136-145) Potassium Level 4.2 mmol/L (3.5-5.1) Chloride Level 102 mmol/L (98-107) Carbon Dioxide Level 25 mmol/L (21-32) Anion Gap 10 (6-14) Blood Urea Nitrogen 13 mg/dL (8-26) Creatinine 1.0 mg/dL (0.7-1.3) Estimated GFR (Cockcroft-Gault) 78.5 BUN/Creatinine Ratio 13 (6-20) Glucose Level 222 mg/dL (70-99) Calcium Level 8.5 mg/dL (8.5-10.1) Total Bilirubin 0.4 mg/dL (0.2-1.0) Aspartate Amino Transf (AST/SGOT) 26 U/L (15-37) Alanine Aminotransferase (ALT/SGPT) 36 U/L (16-63) Alkaline Phosphatase 57 U/L (46-116) Total Protein 6.6 g/dL (6.4-8.2) Albumin 2.5 g/dL (3.4-5.0) Albumin/Globulin Ratio 0.6 (1.0-1.7) Laboratory Tests Test 04/04/19 12:26 04/04/19 13:27 04/04/19 16:25 04/04/19 20:13 Glucose (Fingerstick) 201 mg/dL (70-99) 182 mg/dL (70-99) 218 mg/dL (70-99) Lactic Acid Level 1.0 mmol/L (0.4-2.0) Test 04/05/19 05:15 04/05/19 07:44 White Blood Count 7.6 x10^3/uL (4.0-11.0) Red Blood Count 4.45 x10^6/uL (4.30-5.70) Hemoglobin 12.6 g/dL (13.0-17.5) Hematocrit 36.5 % (39.0-53.0) Mean Corpuscular Volume 82 fL (79-100) Mean Corpuscular Hemoglobin 28 pg (25-35) Mean Corpuscular Hemoglobin Concent 35 g/dL (31-37) Red Cell Distribution Width 14.3 % (11.5-14.5) Platelet Count 174 x10^3/uL (140-400) Neutrophils (%) (Auto) 70 % (31-73) Lymphocytes (%) (Auto) 17 % (24-48) Monocytes (%) (Auto) 13 % (0-9) Eosinophils (%) (Auto) 0 % (0-3) Basophils (%) (Auto) 0 % (0-3) Neutrophils # (Auto) 5.3 x10^3uL (1.8-7.7) Lymphocytes # (Auto) 1.3 x10^3/uL (1.0-4.8) Monocytes # (Auto) 1.0 x10^3/uL (0.0-1.1) Eosinophils # (Auto) 0.0 x10^3/uL (0.0-0.7) Basophils # (Auto) 0.0 x10^3/uL (0.0-0.2) Sodium Level 137 mmol/L (136-145) Potassium Level 4.2 mmol/L (3.5-5.1) Chloride Level 102 mmol/L (98-107) Carbon Dioxide Level 25 mmol/L (21-32) Anion Gap 10 (6-14) Blood Urea Nitrogen 13 mg/dL (8-26) Creatinine 1.0 mg/dL (0.7-1.3) Estimated GFR (Cockcroft-Gault) 78.5 BUN/Creatinine Ratio 13 (6-20) Glucose Level 222 mg/dL (70-99) Calcium Level 8.5 mg/dL (8.5-10.1) Total Bilirubin 0.4 mg/dL (0.2-1.0) Aspartate Amino Transf (AST/SGOT) 26 U/L (15-37) Alanine Aminotransferase (ALT/SGPT) 36 U/L (16-63) Alkaline Phosphatase 57 U/L (46-116) Total Protein 6.6 g/dL (6.4-8.2) Albumin 2.5 g/dL (3.4-5.0) Albumin/Globulin Ratio 0.6 (1.0-1.7) Glucose (Fingerstick) 192 mg/dL (70-99) Microbiology 04/04/19 Blood Culture - Preliminary, Resulted NO GROWTH AFTER 1 DAY Medications Current Medications Sodium Chloride 1,000 ml @ 1,000 mls/hr 1X ONCE IV Last administered on 04/04/19 09:17; Start 04/04/19 at 09:00; Stop 04/04/19 at 09:59; Status DC Ondansetron HCl (Zofran) 4 mg 1X ONCE IV Last administered on 04/04/19at 09:22; Start 04/04/19 at 09:00; Stop 04/04/19 at 09:04; Status DC Acetaminophen (Tylenol) 1,000 mg 1X ONCE PO Last administered on 04/04/19at 09:23; Start 04/04/19 at 09:00; Stop 04/04/19 at 09:04; Status DC Tamsulosin HCl (Flomax) 0.4 mg 1X ONCE PO Last administered on 04/04/19at 09:23; Start 04/04/19 at 09:00; Stop 04/04/19 at 09:04; Status DC Sodium Chloride 1,000 ml @ 1,000 mls/hr 1X ONCE IV Last administered on 04/04/19at 10:19; Start 04/04/19 at 10:15; Stop 04/04/19 at 11:14; Status DC Ciprofloxacin/ Dextrose 200 ml @ 200 mls/hr 1X ONCE IV Last administered on 04/04/19at 10:21; Start 04/04/19 at 10:45; Stop 04/04/19 at 11:44; Status DC Ondansetron HCl (Zofran) 4 mg PRN Q8HRS PRN IV NAUSEA/VOMITING; Start 04/04/19 at 10:45; Stop 04/05/19 at 10:44 Fentanyl Citrate (Fentanyl 2ml Vial) 50 mcg PRN Q1HR PRN IV PAIN Last administered on 04/04/19at 12:42; Start 04/04/19 at 10:45; Stop 04/05/19 at 10:44 Acetaminophen (Tylenol) 650 mg PRN Q4HRS PRN PO FEVER; Start 04/04/19 at 10:45; Stop 04/04/19 at 16:11; Status DC Sodium Chloride 1,000 ml @ 125 mls/hr 1X ONCE IV Last administered on 04/04/19at 12:43; Start 04/04/19 at 10:45; Stop 04/04/19 at 18:44; Status DC Iohexol (Omnipaque 350 Mg/ml) 100 ml 1X ONCE IV Last administered on 04/04/19at 11:32; Start 04/04/19 at 11:15; Stop 04/04/19 at 11:17; Status DC Info (CONTRAST GIVEN -- Rx MONITORING) 1 each PRN DAILY PRN MC SEE COMMENTS; Start 04/04/19 at 11:30; Stop 04/06/19 at 11:29 Ciprofloxacin (Cipro) 500 mg BID PO Last administered on 04/05/19at 08:05; Start 04/04/19 at 21:00 Insulin Human Lispro (HumaLOG) 0-9 UNITS TIDWMEALS SQ Last administered on 04/05/19 08:08; Start 04/04/19 at 12:00 Dextrose (Dextrose 50%-Water Syringe) 12.5 gm PRN Q15MIN PRN IV SEE COMMENTS; Start 04/04/19 at 11:45 Sodium Chloride 1,000 ml @ 100 mls/hr Q10H IV Last administered on 04/04/19 20:52; Start 04/04/19 at 11:45; Stop 04/05/19 at 07:00; Status DC Aspirin (Ecotrin) 81 mg DAILYWBKFT PO Last administered on 04/05/19 08:06; Start 04/05/19 at 08:00 Atorvastatin Calcium (Lipitor) 40 mg QHS PO Last administered on 04/04/19 20:52; Start 04/04/19 at 21:00 Glipizide (Glucotrol) 5 mg BIDBFRMEAL PO Last administered on 04/05/19at 07:13; Start 04/04/19 at 16:30 Lisinopril (Prinivil) 20 mg DAILY PO Last administered on 04/05/19 08:06; Start 04/05/19 at 09:00 Metoprolol Succinate (Toprol Xl) 25 mg DAILY PO Last administered on 04/05/19 08:06; Start 04/05/19 at 09:00 Fenofibrate (Lofibra) 134 mg DAILY PO Last administered on 04/05/19 08:05; Start 04/05/19 at 09:00 Metformin HCl (Glucophage) 500 mg BIDWMEALS PO ; Start 04/07/19 at 08:00 Prasugrel (Effient) 10 mg DAILYWBKFT PO Last administered on 04/05/19 08:05; Start 04/05/19 at 08:00 Acetaminophen (Tylenol) 1,000 mg PRN Q6HRS PRN PO pain Last administered on 04/05/19 07:13; Start 04/04/19 at 16:15 Tamsulosin HCl (Flomax) 0.4 mg QHS PO Last administered on 04/04/19at 20:53; Start 04/04/19 at 21:00 Active Scripts Active Atorvastatin Calcium 40 Mg Tablet 1 Tab PO DAILY Metformin Hcl 500 Mg Tablet 500 Mg PO BIDWMEALS 30 Days Lisinopril 20 Mg Tablet 1 Tab PO DAILY 30 Days Fenofibrate 160 Mg Tablet 1 Tab PO DAILY 30 Days Glipizide 5 Mg Tablet 5 Mg PO BIDBFRMEAL 30 Days Aspirin Ec (Aspirin) 81 Mg Tablet.dr 81 Mg PO DAILYWBKFT 30 Days Metoprolol Succinate ( Xl ) (Metoprolol Succinate) 25 Mg Tab.er.24h 25 Mg PO DAILY 30 Days Effient (Prasugrel Hcl) 10 Mg Tablet 10 Mg PO DAILYWBKFT MDD 30 30 Days Vitals/I & O Vital Sign - Last 24 Hours 04/04/19 04/04/19 04/04/19 04/04/19 09:52 10:22 10:43 11:13 Pulse 98 94 91 83 Resp B/P (MAP) 133/73 (93) 134/71 (92) 144/75 (98) 137/78 (97) Pulse Ox 98 97 97 99 O2 Delivery Room Air Room Air Room Air Room Air 04/04/19 04/04/19 04/04/19 04/04/19 11:34 12:42 12:59 13:15 Temp 98.0 98.0 Pulse 84 72 Resp 21 18 20 18 B/P (MAP) 141/83 (102) 148/79 (102) Pulse Ox 98 98 98 96 O2 Delivery Room Air Room Air Room Air Room Air 04/04/19 04/04/19 04/04/19 04/05/19 15:30 19:05 23:44 03:05 Temp 99.0 97.6 100.2 98.2 99.0 97.6 100.2 98.2 Pulse 84 87 92 80 Resp 18 18 18 16 B/P (MAP) 151/79 (103) 117/74 (88) 109/71 (84) 113/69 (84) Pulse Ox 96 96 96 96 O2 Delivery Room Air Room Air Room Air Room Air 04/05/19 04/05/19 04/05/19 04/05/19 07:00 07:21 08:06 08:06 Temp 98.6 98.6 Pulse 79 79 79 Resp 18 B/P (MAP) 129/73 (91) 129/73 129/73 Pulse Ox 96 O2 Delivery Room Air Room Air Intake and Output 04/04/19 04/04/19 04/05/19 15:00 23:00 07:00 Intake Total 2200 ml 300 ml 2300 ml Output Total 675 ml Balance 1525 ml 300 ml 2300 ml SEJAL BRUMFIELD MD Apr 05, 2019 09:40
[2019-04-05 11:00] VITALS: BP 120/76
[2019-04-05] MEDS: IV NORMAL SALINE 1000ML BAG 1,000 ML IV SCH ×2 (13:44→17:57)
[2019-04-05 15:37] VITALS: BP 120/73
[2019-04-05 19:50] VITALS: BP 128/72
[2019-04-05] MEDS: LACTOBACILLUS RHAMNOSUS GG 1 CAPSULE. PO SCH (20:34)
[2019-04-05] MEDS: ATORVASTATIN CALCIUM 40 MG TABLET. PO SCH (20:34)
[2019-04-05] MEDS: TAMSULOSIN 0.4 MG CAP.ER.24H. PO SCH (20:36)
[2019-04-05 23:10] VITALS: BP 117/69
[2019-04-06 03:10] VITALS: BP 120/70
[2019-04-06] MEDS: ACETAMINOPHEN 500 MG TABLET PO PRN (03:36)
[2019-04-06] MEDS ORDERED: CIPR250T30 PO (07:20)
[2019-04-06] MEDS ORDERED: TAMS0.4C97 PO (07:20)
[2019-04-06 07:37] VITALS: BP 127/71
[2019-04-06] MEDS: PRASUGREL 10 MG TABLET. PO SCH (08:52)
[2019-04-06] MEDS: FENOFIBRATE,MICRONIZED 134 MG CAPSULE PO SCH (08:52)
[2019-04-06] MEDS: METOPROLOL SUCC 24HR ER 25 MG TAB.ER.24H. PO SCH (08:52)
[2019-04-06] MEDS: LACTOBACILLUS RHAMNOSUS GG 1 CAPSULE. PO SCH (08:52)
[2019-04-06 08:53] VITALS: BP 127/71
[2019-04-06] MEDS: glipiZIDE 5 MG TABLET PO SCH (08:53)
[2019-04-06] MEDS: CIPROFLOXACIN HCL 250 MG TABLET. PO SCH (08:53)
[2019-04-06] MEDS: ASPIRIN ENTERIC COATED 81 MG TABLET.DR. PO SCH (08:53)
[2019-04-06] MEDS: LISINOPRIL 20 MG TABLET PO SCH (08:53)
[2019-04-06] MEDS: INSULIN LISPRO 300 UNITS/3 ML INSULN.PEN. SQ SCH (09:01)
--- NOTE | 2019-04-06 10:08 | DS ---
DATE OF DISCHARGE: 04/06/2019 ADMIT DIAGNOSES: 1. Sepsis. 2. Urinary tract infection. 3. Profound hyponatremia. 4. Type 2 diabetes. 5. Hypertension. 6. Coronary artery disease. 7. Benign prostatic hypertrophy. HISTORY OF PRESENT ILLNESS AND HOSPITAL COURSE: This patient is a 53-year-old male who came in with painful urination and difficulty urinating. The patient was found to have a UTI and significant hyponatremia with a sodium of 124. He was admitted for antibiotic treatment, fluid resuscitation and telemetry monitoring. The patient corrected rapidly with IV fluids and came back to baseline with p.o. antibiotics. He was started on Flomax and came back to baseline and plans for discharge were made. DISCHARGE MEDICATIONS: He was discharged with Cipro 500 mg b.i.d. for 10 days, tamsulosin 0.4 mg at bedtime. He will be continued on his chronic medications of aspirin 81 mg daily, atorvastatin 40 mg daily, fenofibrate 160 mg daily, glipizide 5 mg b.i.d., lisinopril 20 mg daily, metformin 500 b.i.d., metoprolol 25 mg extended release tablets daily and Effient 10 mg daily. DISCHARGE INSTRUCTIONS: He will follow up with Dr. Salcedo in one week for continued care and medication reconciliation. SEJAL BRUMFIELD MD DR: TANISHA/aden JOB#: [id number] / [id number]
--- NOTE | 2019-04-06 10:09 | NUR ---
pt was discharged home with self care. he was given a script for Flomax and Cipro. His walked with us out to the main entrance and then took the pt home. Varinder Taveras RN
[2019-04-07] MEDS ORDERED: metFORMIN 500 MG TABLET PO SCH (08:00)
== END 2019-04-06 10:11 | disposition home or self-care (01) | DRG 872 ==
LOC: ER 08:43 → 6 SOUTH 10:34
PROVIDERS: ADMIT Family Medicine; ATTEND Family Medicine
DX: A41.9 Sepsis, unspecified organism (principal); N12 Tubulo-interstitial nephritis, not specified as acute or chronic; E87.1 Hypo-osmolality and hyponatremia; I25.10 Atherosclerotic heart disease of native coronary artery without angina pectoris; E11.65 Type 2 diabetes mellitus with hyperglycemia; E78.00 Pure hypercholesterolemia, unspecified; I10 Essential (primary) hypertension; E78.5 Hyperlipidemia, unspecified; N40.0 Benign prostatic hyperplasia without lower urinary tract symptoms; Z95.5 Presence of coronary angioplasty implant and graft; Z88.1 Allergy status to other antibiotic agents; Z88.8 Allergy status to other drugs, medicaments and biological substances
CPT/HCPCS: 36415; 71045; 71275; 74176; 80053; 81001; 82553; 82962; 83605; 83690; 83735; 83880; 84484; 85025; 85379; 85610; 85730; 87040; 87086; 93005; 96361; 96365; 96375; J0744; J1815; J2405; J3010; J7030; Q9967; 99285-25

== ENCOUNTER → 2019-04-15 | Outpatient (CLI) | payer OTHER ==
[2019-04-06 08:53] VITALS: BP 127/71
[~2019-04-15] MED LIST changes: +ATOR40TA59 PO; +CIPR250T30 PO; +METF500T9 PO; +TAMS0.4C97 PO
--- NOTE | 2019-04-15 11:41 | RAD ---
MR#: [id number] Date of Study: 04/15/2019 Ordering Physician: SHARRON HAWKINS, Referring Physician: BETTE WALSH Tech: RICHARD Hastings, DENICE (Manisha) (N) APPROVED REPORT Test Type: Exercise Stress Nurse/Tech: Lou Tang RN Test Indications: CAD Cardiac History: Hypertension, Diabetes, 3 stents placed 12/10 Medications: See Electronic Medical Record Medical History: See Electronic Medical Record Resting ECG: SR Resting Heart Rate: 73 bpm Resting Blood Pressure: 134/71mmHg Pretest Chest Pain: No chest pain Nurse/Tech Notes S1,S2 and lungs clear to auscultation. Consent: The procedure was explained to the patient in lay terms. Informed consent was witnessed. Matt eout was entered into [employer]. History and Stress Test performed by MISTY Muniz Stress Symptoms No chest pain or symptoms. POST EXERCISE Reason for Termination: Reached target heart rate Target HR: Yes Max HR: 189 bpm 133% of Maximum Predicted HR: 142 bpm Exercise duration: 7:08 min:sec, 2 Stage Exercise capacity: 7.0METs Max Blood Pressure: 142/72mmHg Blood Pressure response to exercise: Normal blood pressure response during stress. Heart Rate response to exercise: WNL Chest Pain: No. Arrhythmia: Yes. PVCs ST Change: No. INTERPRETATION Stress EKG Conclusion: No evidence of stress induced EKG changes. Imaging Protocol IMAGE PROTOCOL: Rest Tc-99m/stress Tc-99m 1 day Rest: Stress: Viability: Radiopharm.Tc99m WssaeyiglFk09f Sestamibi Hsvp82sSd 35mCi Img Date 04/15/2019 04/15/2019 Inj-Img Fbqg37zwm. 60min. Rest Admin Site:IV - Right WristAdministrator:MISTY Muniz Stress Admin Site: IV - Right WristAdministrator: RICHARD Hastings, ARRT (R)(N) STRESS DATA End Diast. Vol.80.0mlLVEDV index BSA33.0ml End Syst. Vol.28.0mlLVESV index BSA12.0ml Myocardial Vvpt203.0gEject. Oczqcpvn36.0% Stress Scores Regional WT2.00Summed WT14.00 Regional WM0.00Summed WM6.00 The rest and stress images show normal perfusion, normal contraction and thickening. LV Perf. Quant 17 Seg. SSS3.00 17 Seg. SRS3.00 17 Seg. SDS1.00 Stress Defect Extent (% LAD)5.00Rest Defect Extent (% LAD)9.40Rev. Defect Extent (% LAD)0.00 Stress Defect Extent (% LCX) 0.00Rest Defect Extent (% LCX)0.00Rev. Defect Extent (% LCX)0.00 Stress Defect Extent (% RCA)0.00Rest Defect Extent (% RCA)0.00Rev. Defect Extent (% RCA)0.00 Stress Defect Extent (% CHIDI)3.50Rest Defect Extent (% CHIDI)7.80Rev. Defect Extent (% CHIDI)0.00 Other Information Quality:Good Risk Assessment: Low Risk Conclusion 1. No evidence of EKG changes with stress testing. 2. Normal perfusion at stress/rest. 3. Low risk study. 4. EF > 60%. Signed by : Sharron Hawkins, Electronically Approved : 04/15/2019 11:40:41
== END | disposition home or self-care (01) ==
LOC: NM 07:39
PROVIDERS: ATTEND Internal Medicine Cardiovascular Disease
DX: I25.10 Atherosclerotic heart disease of native coronary artery without angina pectoris (principal); I49.3 Ventricular premature depolarization; I10 Essential (primary) hypertension; E11.9 Type 2 diabetes mellitus without complications; Z79.01 Long term (current) use of anticoagulants; Z95.5 Presence of coronary angioplasty implant and graft
CPT/HCPCS: 78452; 93017; A9500; 96376

== ENCOUNTER → 2021-01-20 | Outpatient (CLI) | payer BC, OTHER ==
[~2021-01-20] MED LIST changes: -ASPI-612 PO; +ASPI-886 PO; -LISI-334 PO; +LISI20TA18 PO; +METF-658 PO; -METF500T9 PO; +PERFLUTREN PROTEIN-A MICROSPHR 0.22 MG/ML 3 ML VIAL. IV ONE
--- NOTE | 2021-01-20 09:35 | CARD ---
MR#: [id number] Date of Study: 01/20/2021 Ordering Physician: SHARRON HERRERA, Referring Physician: SHARRON HERRERA, Tech: Kimberlee Villegas [facility] APPROVED REPORT EXAM: Two-dimensional and M-mode echocardiogram with Doppler and color Doppler. Other Information Quality : Technically LimitedHR: 62bpm Rhythm : NSRTechnically limited study due to body habitus. INDICATION Cardiac Disease: Echo Enhancing Agent Indication: Endocardial border delineation Agent/Amount Used: Optison 3mL RISK FACTORS Hypertension Obesity Hyperlipidemia Diabetes 2D DIMENSIONS RVDd3.6 (2.9-3.5cm)Left Atrium(2D)5.0 (1.6-4.0cm) IVSd0.8 (0.7-1.1cm)Aortic Root(2D)3.6 (2.0-3.7cm) LVDd5.0 (3.9-5.9cm)LVOT Diameter2.5 (1.8-2.4cm) PWd1.0 (0.7-1.1cm)LVDs3.0 (2.5-4.0cm) FS (%) 40.9 %SV85.6 ml LVEF(%)71.5 (>50%) Aortic Valve AoV Peak Allan.130.5cm/sAoV VTI31.3cm AO Peak GR.6.8mmHgLVOT Peak Allan.83.9cm/s AO Mean GR.3mmHgAVA (VMAX)3.22cm2 Mitral Valve MV E Cklorsco11.3cm/sMV DECEL KOST700wl MV A Zacaymxx35.3cm/sE/A Ratio1.3 Pulmonary Valve PV Peak Xggmlfwz67.8cm/s Pulmonary Vein S1 Hkfvbdha80.5cm/sD2 Xajotvlx12.3cm/s LEFT VENTRICLE The left ventricle is normal size. There is normal left ventricular wall thickness. The left ventricu lar systolic function is normal and the ejection fraction is within normal range. EF 55% There is nor mal LV segmental wall motion. The left ventricular diastolic function and filling is normal for age. No left ventricle thrombus noted on this study. RIGHT VENTRICLE The right ventricle is normal size. There is normal right ventricular wall thickness. The right ventr icular systolic function is normal. ATRIA The left atrium size is normal. The right atrium size is normal. The interatrial septum is intact wit h no evidence for an atrial septal defect or patent foramen ovale as noted on 2-D or Doppler imaging. AORTIC VALVE The aortic valve is normal in structure and function. Doppler and Color Flow revealed no significant aortic regurgitation. There is no significant aortic valvular stenosis. MITRAL VALVE The mitral valve is normal in structure and function. There is no evidence of mitral valve prolapse. There is no mitral valve stenosis. Doppler and Color-flow revealed trace mitral regurgitation. TRICUSPID VALVE The tricuspid valve is normal in structure and function. Doppler and Color Flow revealed no tricuspid valve regurgitation noted. There is no tricuspid valve prolapse or vegetation. PULMONIC VALVE Doppler and Color Flow revealed trace pulmonic valvular regurgitation. There is no pulmonic valvular stenosis. GREAT VESSELS The aortic root is mildly enlarged. The ascending aorta is mildly dilated at 3.7 cm. The IVC is tiffanie l in size and collapses >50% with inspiration. PERICARDIAL EFFUSION There is no evidence of significant pericardial effusion. Critical Notification Critical Value: No <Conclusion> The left ventricular systolic function is normal and the ejection fraction is within normal range. E F 55% There is normal LV segmental wall motion. The ascending aorta is mildly dilated at 3.7 cm. Signed by : Sharron Herrera, Electronically Approved : 01/20/2021 09:35:35
== END ==
LOC: ECHO 07:54
PROVIDERS: ATTEND Internal Medicine Cardiovascular Disease
DX: I51.7 Cardiomegaly (principal); I25.10 Atherosclerotic heart disease of native coronary artery without angina pectoris
CPT/HCPCS: 93306; Q9956

== ENCOUNTER → 2021-12-07 | Outpatient (CLI) | payer OTHER ==
[~2021-12-07] MED LIST changes: -PERFLUTREN PROTEIN-A MICROSPHR 0.22 MG/ML 3 ML VIAL. IV ONE
--- NOTE | 2021-12-07 12:19 | RAD ---
MR#: [id number] Date of Study: 12/07/2021 Ordering Physician: SHARRON HAWKINS, Referring Physician: BETTE WALSH Tech: RT Asael (Manisha) (N) APPROVED REPORT Test Type: Exercise Stress Nurse/Tech: René Rodriguez RN Test Indications: CAD Cardiac History: Stents x 2, HTN, DM Medications: See Electronic Medical Record Medical History: See Electronic Medical Record Resting ECG: SR Resting Heart Rate: 87 bpm Resting Blood Pressure: 122/72mmHg Pretest Chest Pain: None Nurse/Tech Notes Lungs CTA, S1S2 Consent: The procedure was explained to the patient in lay terms. Informed consent was witnessed. Matt eout was entered into [employer]. History and Stress Test performed by RT Asael (R) (N) Stress Symptoms Dyspnea POST EXERCISE Reason for Termination: Reached target heart rate Target HR: Yes Max HR: 147 bpm 105% of Maximum Predicted HR: 140 bpm Exercise duration: 7:41 min:sec, 3 Stage Exercise capacity: 10METs Max Blood Pressure: 152/73mmHg Blood Pressure response to exercise: Normal blood pressure response during stress. Heart Rate response to exercise: normal response Chest Pain: No. Arrhythmia: No. ST Change: No. INTERPRETATION Stress EKG Conclusion: No evidence of stress-induced EKG changes Imaging Protocol IMAGE PROTOCOL: Rest Tc-99m/stress Tc-99m 1 day Rest: Stress: Viability: Radiopharm.Tc99m McabbwlwpCf89q Sestamibi Fqmc40hCk 33mCi Duration 15min. 10min. Img Date 12/07/2021 12/07/2021 Inj-Img [id number]. 60min. Rest Admin Site:IV - Right AntecubitalAdministrator:MISTY Muniz Stress Admin Site: IV - Right AntecubitalAdministrator: MISTY Muniz STRESS DATA End Diast. Vol.108.0mlAv. Heart Ieuh679.0bpm End Syst. Vol.29.0mlCO Index BSA0.0L/min Myocardial Zopl973.0gEject. Qyegbgta63.0% Stress Rates Pk. Fill Rate4.15EDV/secLVtime Pk. Fill 157.36msec Pk. Empty Rate5.13ESV/secLVtime Pk. Eject87.69msec 10/24 Pk. Fill2.21EDV/sec Stress Scores Regional WT1.00Summed WT2.00 Regional WM0.00Summed WM1.00 LV Perfusion There is a small sized severe intensity fixed apical perfusion defect suggestive of prior infarct wit hout active ischemia. Wall Motion Normal wall motion with an EF of greater than 70%. LV Perf. Quant 17 Seg. SSS8.00 17 Seg. SRS11.00 17 Seg. SDS1.00 Stress Defect Extent (% LAD)10.00Rest Defect Extent (% LAD)20.00Rev. Defect Extent (% LAD)0.00 Stress Defect Extent (% LCX) 18.80Rest Defect Extent (% LCX)25.00Rev. Defect Extent (% LCX)0.00 Stress Defect Extent (% RCA)2.20Rest Defect Extent (% RCA)0.00Rev. Defect Extent (% RCA)0.00 Stress Defect Extent (% CHIDI)11.50Rest Defect Extent (% CHIDI)18.70Rev. Defect Extent (% CHIDI)0.00 Other Information Quality:Average Risk Assessment: Low-Moderate Risk Conclusion 1. No evidence of stress-induced EKG changes 2. Good exercise capacity greater than 10 metabolic equivalents 3. Fixed apical perfusion defect 4. Normal EF greater than 70% 5. Low risk study overall. Signed by : Sharron Hawkins, Electronically Approved : 12/07/2021 12:19:12
== END ==
LOC: NM 07:36
PROVIDERS: ATTEND Internal Medicine Cardiovascular Disease
DX: I25.10 Atherosclerotic heart disease of native coronary artery without angina pectoris (principal)
CPT/HCPCS: 78452; 93017; A9500

== ENCOUNTER 2022-03-10 19:37 | Inpatient (IN) | payer OTHER ==
[~2022-03-10] VITALS: Ht 193 cm; Wt 115.7 kg
--- NOTE | 2022-03-10 20:13 | PHYS DOC ---
Past Medical History Past Medical History: CAD, Diabetes-Type II, High Cholesterol, Hypertension Past Surgical History: Other Additional Past Surgical Histo: R ARM,CARDIAC STENTS X 3 Smoking Status: Never Smoker Alcohol Use: None Drug Use: None General Adult EDM: Chief Complaint: ABDOMINAL PAIN HPI: HPI: Patient is a 56 year old male who presented to ER for evaluation of left lower abdominal pain started earlier today. Patient said it happened after he was eating 4 hours ago. Patient states pain is severe in nature, associate with some nausea vomiting. Patient did have some loose stool afterward. Patient denies any fever. Patient any chest pain, no trouble breathing. Patient said his urine is darker than normal but denies any pain with urination. Patient denies any history of kidney stone or diverticulitis. Review of Systems: Review of Systems: Constitutional: Denies fever or chills. [] Eyes: Denies change in visual acuity. [] HENT: Denies nasal congestion or sore throat. [] Respiratory: Denies cough or shortness of breath. [] Cardiovascular: Denies chest pain or edema. [] GI: Positive for left lower abdominal pain with nausea vomiting and diarrhea . : Denies dysuria. [] Musculoskeletal: Denies back pain or joint pain. [] Integument: Denies rash. [] Neurologic: Denies headache, focal weakness or sensory changes. [] Endocrine: Denies polyuria or polydipsia. [] Lymphatic: Denies swollen glands. [] Psychiatric: Denies depression or anxiety. [] Heart Score: C/O Chest Pain: N/A Risk Factors: Risk Factors: DM, Current or recent (<one month) smoker, HTN, HLP, family history of CAD, obesity. Risk Scores: Score 0 - 3: 2.5% MACE over next 6 weeks - Discharge Home Score 4 - 6: 20.3% MACE over next 6 weeks - Admit for Clinical Observation Score 7 - 10: 72.7% MACE over next 6 weeks - Early Invasive Strategies Current Medications: Current Medications Medications (Trade) Dose Ordered Sig/Tristen Start Time Stop Time Status Last Admin Dose Admin Fentanyl Citrate (Fentanyl 2ml Vial) 50 mcg 1X ONCE 03/10/22 20:15 03/10/22 20:16 Ondansetron HCl (Zofran) 4 mg 1X ONCE 03/10/22 20:15 03/10/22 20:16 Sodium Chloride 1,000 ml @ 1,000 mls/hr 1X ONCE 03/10/22 20:15 03/10/22 21:14 Allergies: Allergies: Allergies Coded Allergies Type Severity Reaction Last Updated Verified arginine Adverse Reaction Mild N/V 04/04/19 Yes cefixime Adverse Reaction Mild N/V 04/04/19 Yes ceftazidime Adverse Reaction Mild N/V 04/04/19 Yes Physical Exam: PE: Constitutional: Well developed, well nourished, no acute distress, non-toxic appearance. [] HENT: Normocephalic, atraumatic, bilateral external ears normal, oropharynx moist, no oral exudates, nose normal. [] Eyes: PERRLA, EOMI, conjunctiva normal, no discharge. [] Neck: Normal range of motion, no tenderness, supple, no stridor. [] Cardiovascular:Heart rate regular rhythm, no murmur [] Lungs & Thorax: Bilateral breath sounds clear to auscultation [] Abdomen: Bowel sounds normal, soft, There is tenderness in LLQ, no masses, no pulsatile masses. [] Skin: Warm, dry, no erythema, no rash. [] Back: No tenderness, no CVA tenderness. [] Extremities: No tenderness, no cyanosis, no clubbing, ROM intact, no edema. [] Neurologic: Alert and oriented X 3, normal motor function, normal sensory function, no focal deficits noted. [] Psychologic: Affect normal, judgement normal, mood normal. [] Current Patient Data: Labs: Laboratory Tests Test 03/10/22 20:15 03/10/22 21:55 White Blood Count 15.7 x10^3/uL Red Blood Count 5.73 x10^6/uL Hemoglobin 15.4 g/dL Hematocrit 46.5 % Mean Corpuscular Volume 81 fL Mean Corpuscular Hemoglobin 27 pg Mean Corpuscular Hemoglobin Concent 33 g/dL Red Cell Distribution Width 14.7 % Platelet Count 219 x10^3/uL Neutrophils (%) (Auto) 86 % Lymphocytes (%) (Auto) 9 % Monocytes (%) (Auto) 5 % Eosinophils (%) (Auto) 0 % Basophils (%) (Auto) 0 % Neutrophils # (Auto) 13.5 x10^3/uL Lymphocytes # (Auto) 1.4 x10^3/uL Monocytes # (Auto) 0.7 x10^3/uL Eosinophils # (Auto) 0.0 x10^3/uL Basophils # (Auto) 0.1 x10^3/uL Segmented Neutrophils % 90 % Band Neutrophils % 1 % Lymphocytes % 6 % Monocytes % 2 % Basophils % 1 % Platelet Estimate Adequate Sodium Level 140 mmol/L Potassium Level 4.8 mmol/L Chloride Level 103 mmol/L Carbon Dioxide Level 23 mmol/L Anion Gap 14 Blood Urea Nitrogen 25 mg/dL Creatinine 1.3 mg/dL Estimated GFR (Cockcroft-Gault) 57.3 BUN/Creatinine Ratio 19 Glucose Level 300 mg/dL Calcium Level 8.8 mg/dL Magnesium Level 2.1 mg/dL Total Bilirubin 0.4 mg/dL Aspartate Amino Transf (AST/SGOT) 27 U/L Alanine Aminotransferase (ALT/SGPT) 49 U/L Alkaline Phosphatase 34 U/L Total Protein 7.7 g/dL Albumin 4.0 g/dL Albumin/Globulin Ratio 1.1 Lipase 320 U/L Urine Collection Type Unknown Urine Color (Auto) Light yellow Urine Turbidity Clear Urine pH (Auto) 5.5 Urine Specific [place] 1.035 Urine Protein (Auto) Negative mg/dL Urine Glucose (Auto)(UA) >=1000 mg/dL Urine Ketones (Auto) Trace mg/dL Urine Blood (Auto) Trace Urine Nitrite Negative Urine Bilirubin (Auto) Negative Urine Urobilinogen (Auto) Normal mg/dL Urine Leukocyte Esterase (Auto) Large Urine RBC 3-5 /HPF Urine WBC Tntc /HPF Urine Squamous Epithelial Cells Occ /LPF Urine Bacteria Moderate /HPF Urine Mucus Slight /LPF Urine Yeast Present /HPF Current Medications Medications (Trade) Dose Ordered Sig/Tristen Route PRN Reason Start Time Stop Time Status Last Admin Dose Admin Sodium Chloride 1,000 ml @ 1,000 mls/hr 1X ONCE IV 03/10/22 20:15 03/10/22 21:14 DC 03/10/22 20:29 Ondansetron HCl (Zofran) 4 mg 1X ONCE IVP 03/10/22 20:15 03/10/22 20:16 DC 03/10/22 20:28 Fentanyl Citrate (Fentanyl 2ml Vial) 50 mcg 1X ONCE IVP 03/10/22 20:15 03/10/22 20:16 DC 03/10/22 20:28 Iohexol (Omnipaque 300 Mg/ml) 60 ml 1X ONCE IV 03/10/22 21:00 03/10/22 21:01 DC 03/10/22 21:05 Info (CONTRAST GIVEN -- Rx MONITORING) 1 each PRN DAILY PRN MC SEE COMMENTS 03/10/22 21:00 03/12/22 20:59 Morphine Sulfate (Morphine Sulfate) 4 mg 1X ONCE IVP 03/10/22 21:30 03/10/22 21:31 DC 03/10/22 21:31 Ondansetron HCl (Zofran) 4 mg 1X ONCE IVP 03/10/22 22:00 03/10/22 22:01 DC 03/10/22 21:33 Levofloxacin/ Dextrose 150 ml @ 100 mls/hr 1X ONCE IV 03/10/22 22:00 03/10/22 23:29 03/10/22 21:56 Ketorolac Tromethamine (Toradol 30mg Vial) 30 mg 1X ONCE IVP 03/10/22 22:00 03/10/22 22:01 DC 03/10/22 21:45 Sodium Chloride 1,000 ml @ 1,000 mls/hr 1X ONCE IV 03/10/22 22:30 03/10/22 23:29 03/10/22 22:42 Ondansetron HCl (Zofran) 4 mg PRN Q8HRS PRN IVP NAUSEA/VOMITING 1ST CHOICE 03/10/22 23:00 03/11/22 22:59 Fentanyl Citrate (Fentanyl 2ml Vial) 50 mcg PRN Q1HR PRN IVP SEVERE PAIN 7-10 03/10/22 23:00 03/11/22 22:59 Sodium Chloride 1,000 ml @ 135 mls/hr Q7H25M IV 03/10/22 23:30 03/11/22 23:29 Acetaminophen (Tylenol) 650 mg PRN Q4HRS PRN PO FEVER > 100.3'F 03/10/22 23:00 03/11/22 22:59 Vital Signs: Vital Signs Date Time Temp Pulse Resp B/P (MAP) Pulse Ox O2 Delivery O2 Flow Rate FiO2 03/10/22 19:42 98.3 75 20 179/94 (122) 98 Room Air 98.3 EKG: EKG: [] Radiology/Procedures: Radiology/Procedures: [][facility] [address] [place] [address] IMAGING REPORT Signed PATIENT: ABEBA KESSLER: [id number] : 1965 LOCATION: ER AGE: 56 SEX: M EXAM STATUS: REG ER ORD. PHYSICIAN: MAURA BURNS DO REASON: LLQ ABDOMINAL PAIN PROCEDURE: CT ABD PELV W/ IV CONTRST ONLY Exam: CT of abdomen and pelvis with contrast INDICATION: Left lower quadrant, abdominal pain TECHNIQUE: Sequential axial images through the abdomen and pelvis obtained following the administration of 60 mL of Isovue-370 IV contrast. Sagittal and coronal reformatted images were reconstructed from the axial data and reviewed. Exposure: One or more of the following in the visualized dose reduction techniques were utilized for this examination: 1. Automated exposure control 2. Adjustment of the MA and/or KV according to patient size 3. Use of iterative of reconstructive technique Comparisons: None FINDINGS: Heart size is normal. No pericardial effusion. Visualized lung bases are clear. No pleural effusion. Liver, spleen, pancreas, gallbladder and adrenals are unremarkable. There is left-sided perinephric inflammation and mild hydronephrosis. No renal or ureteral calculi are identified. Small amount of air noted within the left renal collecting system. Bladder is partially distended with small amount of air at the bladder. Prostate is not enlarged. Large and small bowel are unremarkable. Appendix is normal. No free intra-abdomi nal air or fluid. No obstruction. Abdominal aorta has normal course and caliber. Abdominal vasculature is patent. No enlarged intra-abdominal lymph nodes are identified. No suspicious osseous lesions or acute fractures. IMPRESSION: Findings of infection at the left kidney with a small amount of air within the left renal collecting system. Correlate with urinalysis Electronically signed by: Reed Ornelas MD (03/10/2022 9:17 PM) [facility] DICTATED and SIGNED BY: REED ORNELAS MD DATE: 03/10/222111 Course & Med Decision Making: Course & Med Decision Making Pertinent Labs and Imaging studies reviewed. (See chart for details) [Patient is a 56-year-old male who presented to ER for evaluation of left side abdominal pain with nausea vomiting. CT scan show evidence of pyelonephritis. Patient's blood sugar elevated. Patient will be admitted to hospital for further evaluation and treatment. Patient was given IV fluid, IV antibiotic, IV pain medication Dragon Disclaimer: Dragon Disclaimer: This electronic medical record was generated, in whole or in part, using a voice recognition dictation system. Departure Departure Impression: Primary Impression: Acute pyelonephritis Additional Impression: Hyperglycemia Disposition: ADMITTED INPATIENT Admitting Physician: COLLINS (DR. Ellsworth) Condition: IMPROVED Referrals: GEMMA NOYOLA MD (PCP) MAURA BURNS DO March 10, 2022 20:13
[2022-03-10] MEDS ORDERED: ONDANSETRON PF 4 MG/2 ML VIAL. IVP ONE ×2 (20:15→22:00)
[2022-03-10] MEDS ORDERED: fentaNYL PF VIAL 100 MCG/2 ML VIAL IVP ONE (20:15)
[2022-03-10] MEDS ORDERED: IV NORMAL SALINE 1000ML BAG 1,000 ML IV ONE ×2 (20:15→22:30)
[2022-03-10 20:26] LABS: BASO # 0.1 x10^3/uL (0.0-0.2); BASO % 0 % (0-3); EOS % 0 % (0-3); HEMATOCRIT 46.5 % (39.0-53.0); HEMOGLOBIN 15.4 g/dL (13.0-17.5); LYMPH # 1.4 x10^3/uL (1.0-4.8); LYMPH % 9 % (24-48); MEAN CORPUSCULAR HEMOGLOBIN 27 pg (25-35); MEAN CORPUSCULAR HGB CONC 33 g/dL (31-37); MEAN CORPUSCULAR VOLUME 81 fL (79-100); MONO # 0.7 x10^3/uL (0.0-1.1); MONO % 5 % (0-9); NEUT # 13.5 x10^3/uL (1.8-7.7); NEUT % 86 % (31-73); PLATELET COUNT 219 x10^3/uL (140-400); RED BLOOD COUNT 5.73 x10^6/uL (4.30-5.70); RED CELL DISTRIBUTION WIDTH 14.7 % (11.5-14.5); WHITE BLOOD COUNT 15.7 x10^3/uL (4.0-11.0)
[2022-03-10 20:33] LABS: CALCIUM 8.8 mg/dL (8.5-10.1); CREATININE 1.3 mg/dL (0.7-1.3); GFR 57.3; POTASSIUM 4.8 mmol/L (3.5-5.1)
[2022-03-10 20:40] LABS: ALBUMIN/GLOBULIN RATIO 1.1 (1.0-1.7); MAGNESIUM 2.1 mg/dL (1.8-2.4); TOTAL BILIRUBIN 0.4 mg/dL (0.2-1.0); TOTAL PROTEIN 7.7 g/dL (6.4-8.2)
[2022-03-10] MEDS ORDERED: IOHEXOL 300 MG/ML 100ML VIAL. IV ONE (21:00)
[2022-03-10] MEDS ORDERED: CONTRAST GIVEN. MC PRN (21:00)
[2022-03-10 21:03] LABS: % BANDS 1 % (0-9); % BASOS 1 % (0-3); % LYMPHS 6 % (24-48); % MONOS 2 % (0-10); % SEGS 90 % (35-66); PLT ESTIMATE ADEQUATE (ADEQUATE)
--- NOTE | 2022-03-10 21:19 | RAD ---
Exam: CT of abdomen and pelvis with contrast INDICATION: Left lower quadrant, abdominal pain TECHNIQUE: Sequential axial images through the abdomen and pelvis obtained following the administrati on of 60 mL of Isovue-370 IV contrast. Sagittal and coronal reformatted images were reconstructed fro m the axial data and reviewed. Exposure: One or more of the following in the visualized dose reduction techniques were utilized for this examination: 1. Automated exposure control 2. Adjustment of the MA and/or KV according to patient size 3. Use of iterative of reconstructive technique Comparisons: None FINDINGS: Heart size is normal. No pericardial effusion. Visualized lung bases are clear. No pleural effusion. Liver, spleen, pancreas, gallbladder and adrenals are unremarkable. There is left-sided perinephric inflammation and mild hydronephrosis. No renal or ureteral calculi ar e identified. Small amount of air noted within the left renal collecting system. Bladder is partially distended with small amount of air at the bladder. Prostate is not enlarged. Large and small bowel are unremarkable. Appendix is normal. No free intra-abdominal air or fluid. No obstruction. Abdominal aorta has normal course and caliber. Abdominal vasculature is patent. No enlarged intra-abdominal lymph nodes are identified. No suspicious osseous lesions or acute fractures. IMPRESSION: Findings of infection at the left kidney with a small amount of air within the left renal collecting system. Correlate with urinalysis Electronically signed by: Reed Brenner MD (03/10/2022 9:17 PM) [facility]
[2022-03-10] MEDS ORDERED: MORPHINE SULFATE 4 MG/ML INJ. IVP ONE (21:30)
[2022-03-10] MEDS ORDERED: KETOROLAC 30 MG/ML VIAL. IVP ONE (22:00)
[2022-03-10 22:24] LABS: BACTERIA,URINE MODERATE /HPF (0-FEW); WBC,URINE TNTC /HPF (0-4); YEAST,URINE PRESENT /HPF
[2022-03-11] VITALS (8 sets, daily range): BP systolic 106–157; BP diastolic 53–90
[2022-03-11] MEDS: fentaNYL PF VIAL 100 MCG/2 ML VIAL IVP PRN ×2 (00:14→02:56)
[2022-03-11] MEDS: IV NORMAL SALINE 1000ML BAG 1,000 ML IV SCH ×4 (00:17→21:40)
[2022-03-11] MEDS ORDERED: EMPA25TA3 PO (01:01)
[2022-03-11] MEDS ORDERED: FLUT16SP NS (01:01)
[2022-03-11] MEDS ORDERED: METF10007 PO (01:01)
[2022-03-11] MEDS ORDERED: LOSA50TA15 PO (01:01)
[2022-03-11] MEDS ORDERED: SITA100T PO (01:01)
[2022-03-11] MEDS: ONDANSETRON PF 4 MG/2 ML VIAL. IVP PRN ×3 (03:00→16:52)
--- NOTE | 2022-03-11 03:42 | NUR ---
Pts daughter and son walked up with him from ER; son handed this nurse the pts wallet. LENKA Arriaga witnessed this and this nurse putting the wallet on desk. The Marsha ULLOA then witnessed this nurse picking up the wallet and they both walked the wallet to the pts room. Asked pt if he wanted his wallet with him or if he would like security to hold it. Pt stated we could put it in the top bisque kiln drawer bedside stand and leave it there. Pts wallet was placed in top drawer.
[2022-03-11] MEDS: ACETAMINOPHEN 325 MG TABLET. PO PRN ×4 (05:41→19:56)
[2022-03-11] MEDS: METOPROLOL SUCC 24HR ER 25 MG TAB.ER.24H. PO SCH (08:56)
--- NOTE | 2022-03-11 11:40 | HP ---
DATE OF SERVICE: 03/11/2022 ADMIT DATE: 03/11/2022 CHIEF COMPLAINT: Abdominal pain. HISTORY OF PRESENT ILLNESS: The patient is a pleasant 56-year-old male who has diabetes, CAD, hypertension, hyperlipidemia. He presents with abdominal pain that started about 4 hours prior to arrival to the ER. He had associated nausea, worse with food, better with no food. We did lab and imaging. He has pyelonephritis. We admitted the patient with pyelonephritis and hyperglycemia. We gave him IV antibiotics, fluids and insulin. PAST MEDICAL HISTORY: CAD, diabetes, hypertension, hyperlipidemia, right arm surgery, cardiac stents x 3. ALLERGIES: ARGININE, CEFIXIME, AND CEFTAZIDIME. FAMILY HISTORY: Coronary artery disease. SOCIAL HISTORY: He does not drink, smoke or take drugs. MEDICATIONS: Reviewed. Please refer to the MRAD. REVIEW OF SYSTEMS: GENERAL: No history of weight change, weakness or fevers. SKIN: No bruising, hair changes or rashes. EYES: No blurred, double or loss of vision. NOSE AND THROAT: No history of nosebleeds, hoarseness or sore throat. HEART: No history of palpitations, chest pain or shortness of breath on exertion. LUNGS: Denies cough, hemoptysis, wheezing or shortness of breath. GASTROINTESTINAL: Denies changes in appetite, nausea, vomiting, diarrhea or constipation. GENITOURINARY: No history of frequency, urgency, hesitancy or nocturia. NEUROLOGIC: Denies history of numbness, tingling, tremor or weakness. PSYCHIATRIC: No history of panic, anxiety or depression. ENDOCRINE: No history of heat or cold intolerance, polyuria or polydipsia. EXTREMITIES: Denies muscle weakness, joint pain, pain on walking or stiffness. PHYSICAL EXAMINATION: VITALS: Within normal limits and are stable. GENERAL: No apparent distress. Alert and oriented. HEENT: Normal cephalic atraumatic, external auditory canals are patent. EYES: Extraocular muscles are intact, pupils are equally round and reactive to light and accommodation. MUSCULOSKELETAL: Well developed, well nourished, good range of motion. ENDOCRINE: No thyromegaly was palpated. LYMPHATICS: No cervical chain or axillary nodes were noted. HEMATOPOIETIC: No bruising. NECK: Supple, no JVD, no thyromegaly was noted. LUNGS: Clear to auscultation in all lung ortiz without rhonchi or wheezing. HEART: RRR, S1, S2 present. Peripheral pulses intact, no obvious murmurs were noted. ABDOMEN: Soft, nontender. Positive bowel sounds no organomegaly, normal bowel sounds. EXTREMITIES: Without any cyanosis, clubbing, or edema. Pedal pulses intact, Homans sign is negative. NEUROLOGIC: Normal speech, normal tone. A and O x 3, moves all extremities, no obvious focal deficits. PSYCHIATRIC: Normal affect, normal mood. Stable. SKIN: No ulcerations or rashes, good skin turgor, no jaundice. VASCULAR: Good capillary refill, neurovascular bundle appears to be intact. LABORATORY DATA: White count is 16. Electrolytes are normal, but glucose is high at 300. Urinalysis shows a large amount of leukocyte esterase and too numerous to count white cells. CT of the abdomen shows left kidney infection. ASSESSMENT AND PLAN: Pyelonephritis and hyperglycemia, leukocytosis. The patient will be admitted. We will start IV antibiotics, IV fluids, sliding scale insulin. Home medications. Deep venous thrombosis prophylaxis. Full code. DIANNE DR: Tanvi TID: [id number]
[2022-03-11] MEDS ORDERED: DEXTROSE 50% 25 GM / 50ML DISP.SYRIN. IV PRN (13:00)
[2022-03-11] MEDS ORDERED: METOPROLOL SUCC 24HR ER 25 MG TAB.ER.24H. PO SCH (13:00)
[2022-03-11] MEDS ORDERED: LINAGLIPTIN 5 MG TABLET PO SCH (13:15)
[2022-03-11] MEDS: FENOFIBRATE,MICRONIZED 134 MG CAPSULE PO SCH (13:31)
[2022-03-11] MEDS: LOSARTAN POTASSIUM 50 MG TABLET. PO SCH (13:31)
[2022-03-11] MEDS: INSULIN LISPRO 300 UNITS/3 ML VIAL. SQ SCH ×2 (13:36→17:00)
[2022-03-11] MEDS: glipiZIDE 5 MG TABLET PO SCH (16:53)
[2022-03-11] MEDS: ATORVASTATIN CALCIUM 40 MG TABLET. PO SCH (19:56)
[2022-03-11] MEDS ORDERED: ASPIRIN CHEWABLE 81 MG TABLET. PO SCH (20:00)
[2022-03-11] MEDS ORDERED: DOCUSATE SODIUM 100 MG CAPSULE. PO PRN (20:30)
[2022-03-11] MEDS ORDERED: PROCHLORPERAZINE 10 MG/2 ML VIAL. IM PRN (20:30)
[2022-03-11] MEDS: TAMSULOSIN 0.4 MG CAP.ER.24H. PO SCH (20:57)
[2022-03-11] MEDS ORDERED: PROCHLORPERAZINE 10 MG/2 ML VIAL. IV PRN ×2 (21:15)
[2022-03-11] MEDS ORDERED: ASPIRIN CHEWABLE 81 MG TABLET. PO ONE (21:30)
[2022-03-12] VITALS (22 sets, daily range): BP systolic 101–165; BP diastolic 53–80
[2022-03-12] MEDS ORDERED: MORPHINE SULFATE 2 MG/ML INJ. IV PRN (00:30)
[2022-03-12] MEDS ORDERED: ONDANSETRON PF 4 MG/2 ML VIAL. IVP PRN (00:45)
--- NOTE | 2022-03-12 05:15 | NUR ---
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 Morphine decreased pain level satisfied. Pt up to bathroom several times wanting IV pump unhooked each time. Explained protocol on that method. Pt remains safe no ham done, will continue to monitor.
--- NOTE | 2022-03-12 07:25 | NUR ---
At 0641 this grant writer went in to assess pt and noted him coming out of the bathroom chilling severely. He was assisted back to his bed and NC was replaced at 2L, he stated, "I can't catch my breath." Protocol was obtained to check VS and he was sating between 87-90%. O2 was turned up to 3L and he cont to desat. This nurse applied a rebreather to pt and increased O2 to 6L. His temp was obtained with his BP and pulse. Temp was 99.3, pulse was running in between 126-130 and BP read 149/104. Dr. Mcfadden was notified of decline and he ordered consult with ID and GI. During this time nurses Krysta RN and Alicia RN went into assess and said that his pulse had increased to 160. This nurse called RT to have them assess, Krysta OG did then call a rapid for decrease in pt condition. Dr. Mcfadden was then notified of decline and he ordered for him to be transferred to ICU. Rapid was called during this time and staff had arrived for rapid to be started. Pt did come to his room at 0711 and was notified by another RN in regards to his condition. She was escorted to ICU waiting room. Report was call at approx 0715 to Milly OG.
[2022-03-12] MEDS: ACETAMINOPHEN 325 MG TABLET. PO PRN ×4 (07:42→22:56)
[2022-03-12] MEDS: INSULIN LISPRO 300 UNITS/3 ML VIAL. SQ SCH ×3 (08:00→18:11)
[2022-03-12] MEDS ORDERED: PRASUGREL 10 MG TABLET. PO SCH (08:00)
[2022-03-12] MEDS: FLUTICASONE 50MCG/NASAL SPRAY 16GM BOTTLE. NS SCH (09:00)
--- NOTE | 2022-03-12 09:15 | RAD ---
INDICATION: Reason: went from room air to non re breather / Spl. Instructions: / History: . Shortnes s of breath. COMPARISON: March 2019 FINDINGS: Frontal view of chest obtained. Intramedullary barry partially seen at the right humerus. Cardiac silhouette is mildly enlarged. There are some suspected calcified granulomas. Hazy opacity at the left lung base IMPRESSION: * Hazy opacity left lung base could be from atelectasis or mild infiltrate. Electronically signed by: John Serra MD (03/12/2022 9:12 AM) [id number]
[2022-03-12 09:21] LABS: BASO % 0 % (0-3); EOS % 0 % (0-3); HEMATOCRIT 37.5 % (39.0-53.0); HEMOGLOBIN 12.4 g/dL (13.0-17.5); LYMPH # 0.4 x10^3/uL (1.0-4.8); LYMPH % 4 % (24-48); MEAN CORPUSCULAR HEMOGLOBIN 27 pg (25-35); MEAN CORPUSCULAR HGB CONC 33 g/dL (31-37); MEAN CORPUSCULAR VOLUME 81 fL (79-100); MONO # 0.5 x10^3/uL (0.0-1.1); MONO % 5 % (0-9); NEUT # 9.1 x10^3/uL (1.8-7.7); NEUT % 92 % (31-73); PLATELET COUNT 108 x10^3/uL (140-400); RED BLOOD COUNT 4.64 x10^6/uL (4.30-5.70); RED CELL DISTRIBUTION WIDTH 14.9 % (11.5-14.5); WHITE BLOOD COUNT 9.9 x10^3/uL (4.0-11.0)
[2022-03-12 09:32] LABS: CALCIUM 7.6 mg/dL (8.5-10.1); CREATININE 2.1 mg/dL (0.7-1.3); POTASSIUM 3.7 mmol/L (3.5-5.1)
[2022-03-12] MEDS: ASPIRIN CHEWABLE 81 MG TABLET. PO SCH (09:34)
[2022-03-12] MEDS: EMPAGLIFLOZIN 25 MG TABLET. PO SCH (09:35)
[2022-03-12] MEDS: FENOFIBRATE,MICRONIZED 134 MG CAPSULE PO SCH (09:35)
[2022-03-12] MEDS: glipiZIDE 5 MG TABLET PO SCH ×2 (09:35→17:37)
[2022-03-12] MEDS: METOPROLOL SUCC 24HR ER 25 MG TAB.ER.24H. PO SCH (10:46)
[2022-03-12] MEDS: LOSARTAN POTASSIUM 50 MG TABLET. PO SCH (10:46)
[2022-03-12] MEDS: LACTOBACILLUS RHAMNOSUS GG 1 CAPSULE. PO SCH ×2 (11:58→20:16)
--- NOTE | 2022-03-12 12:32 | PDOC ---
[facility] PROGRESS NOTE Date of Service DOS: DATE: 03/12/22 TIME: 12:30 Chief Complaint Chief Complaint Severe sepsis Pyelonephritis Leukocytosis Hyperglycemia History of the following; CAD, diabetes, hypertension, hyperlipidemia, right arm surgery, cardiac stents x 3. History of Present Illness History of Present Illness 03/12/2022 Patient seen and examined in ICU He became septic yesterday so I transferred him down His is present today Currently getting IV Levaquin ID consult pending Had a temperature of 103.8 but it is resolving now after Tylenol and ice He was on nonrebreather last night but now we have him down to O2 per nasal cannula Blood pressures are improving Discussed with RN Chart reviewed Vitals/I&O Vitals/I&O: Vital Signs Date Time Temp Pulse Resp B/P (MAP) Pulse Ox O2 Delivery O2 Flow Rate FiO2 03/12/22 12:10 Nasal Cannula 3.0 03/12/22 12:09 121 26 124/64 (84) 95 03/12/22 11:14 100.1 100.1 I & O 03/11/22 03/11/22 03/12/22 15:00 23:00 07:00 Intake Total 360 ml Balance 360 ml Physical Exam General: mild distress, Other (Very weak seems depressed) Heart: Regular rate Lungs: Clear Abdomen: Normal bowel sounds Extremities: No clubbing Skin: No rashes Labs Labs: Laboratory Tests Test 03/11/22 13:31 03/11/22 16:47 03/11/22 20:37 03/12/22 07:08 Glucose (Fingerstick) 273 mg/dL (70-99) 189 mg/dL (70-99) 171 mg/dL (70-99) 215 mg/dL (70-99) Test 03/12/22 07:50 03/12/22 09:05 03/12/22 12:22 SARS-CoV-2 Antigen (Rapid) Negative (NEGATIVE) White Blood Count 9.9 x10^3/uL (4.0-11.0) Red Blood Count 4.64 x10^6/uL (4.30-5.70) Hemoglobin 12.4 g/dL (13.0-17.5) Hematocrit 37.5 % (39.0-53.0) Mean Corpuscular Volume 81 fL (79-100) Mean Corpuscular Hemoglobin 27 pg (25-35) Mean Corpuscular Hemoglobin Concent 33 g/dL (31-37) Red Cell Distribution Width 14.9 % (11.5-14.5) Platelet Count 108 x10^3/uL (140-400) Neutrophils (%) (Auto) 92 % (31-73) Lymphocytes (%) (Auto) 4 % (24-48) Monocytes (%) (Auto) 5 % (0-9) Eosinophils (%) (Auto) 0 % (0-3) Basophils (%) (Auto) 0 % (0-3) Neutrophils # (Auto) 9.1 x10^3/uL (1.8-7.7) Lymphocytes # (Auto) 0.4 x10^3/uL (1.0-4.8) Monocytes # (Auto) 0.5 x10^3/uL (0.0-1.1) Eosinophils # (Auto) 0.0 x10^3/uL (0.0-0.7) Basophils # (Auto) 0.0 x10^3/uL (0.0-0.2) Sodium Level 135 mmol/L (136-145) Potassium Level 3.7 mmol/L (3.5-5.1) Chloride Level 104 mmol/L (98-107) Carbon Dioxide Level 18 mmol/L (21-32) Anion Gap 13 (6-14) Blood Urea Nitrogen 24 mg/dL (8-26) Creatinine 2.1 mg/dL (0.7-1.3) Estimated GFR (Cockcroft-Gault) 33.0 Glucose Level 160 mg/dL (70-99) Calcium Level 7.6 mg/dL (8.5-10.1) Glucose (Fingerstick) 188 mg/dL (70-99) Assessment and Plan Assessmemt and Plan Problems Medical Problems: (1) Acute pyelonephritis Status: Acute (2) Hyperglycemia Status: Acute Severe sepsis Pyelonephritis Leukocytosis Hyperglycemia History of the following; CAD, diabetes, hypertension, hyperlipidemia, right arm surgery, cardiac stents x 3. Plan ICU monitoring IV antibiotics IV fluids Trend labs Encourage p.o. intake Await ID input Home meds DVT prophylaxis Full code Prognosis guarded but slowly improving I discussed the case with his CC time 31-minute Comment Review of Relevant I have reviewed the following items lety (where applicable) has been applied. Medications: Current Medications Medications (Trade) Dose Ordered Sig/Tristen Route PRN Reason Start Time Stop Time Status Last Admin Dose Admin Atorvastatin Calcium (Lipitor) 40 mg QHS PO 03/11/22 21:00 03/11/22 19:56 Empaglifozin (Jardiance) 25 mg DAILY PO 03/12/22 09:00 03/12/22 09:35 Glipizide (Glucotrol) 5 mg BIDBFRMEAL PO 03/11/22 16:30 03/12/22 09:35 Losartan Potassium (Cozaar) 50 mg DAILY PO 03/11/22 13:00 03/12/22 10:46 Metoprolol Succinate (Toprol Xl) 25 mg DAILY PO 03/11/22 13:00 03/11/22 21:17 DC 03/11/22 13:30 Prasugrel (Effient) 10 mg DAILYWBKFT PO 03/12/22 08:00 03/12/22 09:34 Tamsulosin HCl (Flomax) 0.4 mg QHS PO 03/11/22 21:00 03/11/22 20:57 Fenofibrate (Lofibra) 134 mg DAILY PO 03/11/22 13:15 03/12/22 09:35 Linagliptin (Tradjenta) 5 mg DAILY PO 03/11/22 13:15 03/12/22 09:34 DC 03/11/22 13:31 Insulin Human Lispro (HumaLOG) 0-7 UNITS TIDWMEALS SQ 03/11/22 13:30 03/11/22 13:36 Aspirin (Aspirin Chewable) 81 mg DAILYWBKFT PO 03/12/22 08:00 03/12/22 09:34 Docusate Sodium (Colace) 100 mg PRN DAILY PRN PO HARD STOOLS 03/11/22 20:30 03/12/22 10:48 Prochlorperazine Edisylate (Compazine) 10 mg PRN Q6HRS PRN IV NAUSEA/VOMITING 2ND CHOICE 03/11/22 21:15 03/11/22 21:38 Aspirin (Aspirin Chewable) 81 mg 1X ONCE PO 03/11/22 21:30 03/11/22 21:31 DC 03/11/22 21:38 Morphine Sulfate (Morphine Sulfate) 2 mg PRN Q2HR PRN IV SEVERE PAIN 7-10 03/12/22 00:30 03/12/22 01:03 Ondansetron HCl (Zofran) 4 mg PRN Q6HRS PRN IVP NAUSEA/VOMITING 1ST CHOICE 03/12/22 00:45 03/12/22 01:11 Acetaminophen (Tylenol) 650 mg PRN Q4HRS PRN PO MILD PAIN / TEMP > 100.3'F 03/12/22 07:30 03/12/22 11:59 Lactobacillus Rhamnosus (Culturelle) 1 cap BID PO 03/12/22 11:00 03/12/22 11:58 Justifications for Admission Other Justification LISETH MAHAN III DO March 12, 2022 12:32
--- NOTE | 2022-03-12 14:00 | PDOC ---
Infectious Disease Note Vital Signs: Vital Signs Vital Signs Date Time Temp Pulse Resp B/P (MAP) Pulse Ox O2 Delivery O2 Flow Rate FiO2 03/12/22 12:10 Nasal Cannula 3.0 03/12/22 12:09 121 26 124/64 (84) 95 03/12/22 11:14 100.1 100.1 Medications: Inpatient Meds: Medications reviewed. Labs: Lab Laboratory Tests Test 03/11/22 16:47 03/11/22 20:37 03/12/22 07:08 03/12/22 07:50 Glucose (Fingerstick) 189 mg/dL (70-99) 171 mg/dL (70-99) 215 mg/dL (70-99) SARS-CoV-2 Antigen (Rapid) Negative (NEGATIVE) Test 03/12/22 09:05 03/12/22 12:22 White Blood Count 9.9 x10^3/uL (4.0-11.0) Red Blood Count 4.64 x10^6/uL (4.30-5.70) Hemoglobin 12.4 g/dL (13.0-17.5) Hematocrit 37.5 % (39.0-53.0) Mean Corpuscular Volume 81 fL (79-100) Mean Corpuscular Hemoglobin 27 pg (25-35) Mean Corpuscular Hemoglobin Concent 33 g/dL (31-37) Red Cell Distribution Width 14.9 % (11.5-14.5) Platelet Count 108 x10^3/uL (140-400) Neutrophils (%) (Auto) 92 % (31-73) Lymphocytes (%) (Auto) 4 % (24-48) Monocytes (%) (Auto) 5 % (0-9) Eosinophils (%) (Auto) 0 % (0-3) Basophils (%) (Auto) 0 % (0-3) Neutrophils # (Auto) 9.1 x10^3/uL (1.8-7.7) Lymphocytes # (Auto) 0.4 x10^3/uL (1.0-4.8) Monocytes # (Auto) 0.5 x10^3/uL (0.0-1.1) Eosinophils # (Auto) 0.0 x10^3/uL (0.0-0.7) Basophils # (Auto) 0.0 x10^3/uL (0.0-0.2) Sodium Level 135 mmol/L (136-145) Potassium Level 3.7 mmol/L (3.5-5.1) Chloride Level 104 mmol/L (98-107) Carbon Dioxide Level 18 mmol/L (21-32) Anion Gap 13 (6-14) Blood Urea Nitrogen 24 mg/dL (8-26) Creatinine 2.1 mg/dL (0.7-1.3) Estimated GFR (Cockcroft-Gault) 33.0 Glucose Level 160 mg/dL (70-99) Calcium Level 7.6 mg/dL (8.5-10.1) Glucose (Fingerstick) 188 mg/dL (70-99) Objective: Assessment: Patient seen and examined Patient was transferred earlier this morning from medical floor to ICU due to rapid response with fever of 103.8 with tachycardia Currently stable Impression Pyelonephritis UTI Allergy/abx intolerance Cefixime and Ceftazidime - vomiting - awhile ago BLANCA DM2 Plan: Plan of Care Continue Levaquin but renal dosing. Discussed with pharmacy. Monitor urine and blood culture Continue supportive care Thank you for this consult ALLAN GARCIA MD March 12, 2022 14:00
--- NOTE | 2022-03-12 15:21 | CONS ---
DATE OF CONSULTATION: 03/12/2022 REFERRING PHYSICIAN: Dr. Mcfadden. REASON FOR CONSULTATION: Sepsis, antibiotic management. HISTORY OF PRESENT ILLNESS: A 56-year-old male with history of diabetes, coronary artery disease, hyperlipidemia, hypertension, nephrolithiasis, diverticulitis, presented to the ER with complaints of abdominal pain, more in the left side with nausea, vomiting. He denies any fever. His urine was darker than normal. His white count was 15.7. Creatinine on admission was 1.3, bumped up to 2.1. The patient had fever of 103.8, was transferred to ICU after rapid response was called last night, the patient is currently on Levaquin. ID consultation has been requested for antibiotic management. PAST MEDICAL HISTORY: Diabetes, hypertension, hyperlipidemia, coronary artery disease, nephrolithiasis, diverticulitis. SOCIAL HISTORY: Nonsmoker, no alcohol, no drugs. REVIEW OF SYSTEMS: Negative except for above in HPI. CURRENT MEDICATIONS: Levaquin. Other medications reviewed in medication list. PHYSICAL EXAMINATION: VITAL SIGNS: Temperature 100.1, T-max 103.8, pulse 121, respiratory rate 26, blood pressure 141/64, oxygen saturation 95% on 3 liters O2 by nasal cannula. GENERAL: Alert, oriented x 3 male, tired appearing, lying in bed comfortably, in no acute distress. HEENT: Normocephalic, atraumatic. Anicteric. No thrush. NECK: Supple. LUNGS: Clear bilaterally. No wheezing. HEART: S1, S2. No gallops or murmurs. ABDOMEN: Soft, nontender, nondistended, no rebound and no guarding. Byrne in place EXTREMITIES: No edema, no cyanosis. DERMATOLOGIC: Warm, dry, no generalized rash. NEUROLOGIC: Alert and oriented x 3, grossly nonfocal. PSYCHIATRIC: Calm and cooperative. PIV clean. LABORATORY DATA: WBC 9.9, was 15.7; hemoglobin 12.4; hematocrit 37.5; platelets 108. Sodium 135, potassium 3.7, chloride 104, bicarb 18, BUN 24, creatinine 2.1, glucose 188. UA shows wbc's too numerous to count. SARS-COVID negative. MICRO: Urine culture greater than 100,000 PFU/mL of gram-negative barry. IMAGING: Abdomen and pelvic CT shows findings of infection at the left kidney. There is a small amount of air within the left renal collecting system. Chest x-ray, hazy opacity, left lung base, could be from atelectasis or mild infiltrate. IMPRESSION: 1. Pyelonephritis. 2. Leukocytosis. 3. Urinary tract infection. 4. History of kidney stone. 5. History of diverticulitis. 6. Hyperglycemia. 7. Acute kidney injury. 8. Thrombocytopenia. RECOMMENDATIONS: 1. Cont Levaquin for now renal dosing as needed , pharmacy to assist 2. Patient is currently stable after transfer to ICU 3. Monitor blood and urine culture. 4. Monitor labs and cultures. 5. Continue supportive care. Thank you for allowing me to participate in this patient's care. If you have any questions, do not hesitate to contact me. Discssed with nursing staff. CCT 35 minutes. PEG/ROGELIO DR: Navid TID: [id number] MTDD
[2022-03-12] MEDS: LINAGLIPTIN 5 MG TABLET PO SCH (17:37)
[2022-03-12] MEDS: IV NORMAL SALINE 1000ML BAG 1,000 ML IV SCH (18:11)
[2022-03-12] MEDS: TAMSULOSIN 0.4 MG CAP.ER.24H. PO SCH (20:16)
[2022-03-12] MEDS: ATORVASTATIN CALCIUM 40 MG TABLET. PO SCH (20:17)
[2022-03-13] VITALS (16 sets, daily range): BP systolic 98–143; BP diastolic 59–79
[2022-03-13] MEDS: ACETAMINOPHEN 325 MG TABLET. PO PRN ×3 (03:29→23:58)
[2022-03-13] MEDS: IV NORMAL SALINE 1000ML BAG 1,000 ML IV SCH (03:29)
[2022-03-13 06:05] LABS: CALCIUM 7.8 mg/dL (8.5-10.1); CREATININE 1.5 mg/dL (0.7-1.3); GFR 48.6; POTASSIUM 4.1 mmol/L (3.5-5.1)
[2022-03-13 06:06] LABS: BASO % 0 % (0-3); EOS % 0 % (0-3); HEMATOCRIT 35.8 % (39.0-53.0); LYMPH # 0.7 x10^3/uL (1.0-4.8); LYMPH % 7 % (24-48); MEAN CORPUSCULAR HEMOGLOBIN 27 pg (25-35); MEAN CORPUSCULAR HGB CONC 33 g/dL (31-37); MEAN CORPUSCULAR VOLUME 82 fL (79-100); MONO # 0.8 x10^3/uL (0.0-1.1); MONO % 8 % (0-9); NEUT # 8.6 x10^3/uL (1.8-7.7); NEUT % 85 % (31-73); PLATELET COUNT 110 x10^3/uL (140-400); RED BLOOD COUNT 4.38 x10^6/uL (4.30-5.70); RED CELL DISTRIBUTION WIDTH 15.3 % (11.5-14.5); WHITE BLOOD COUNT 10.1 x10^3/uL (4.0-11.0)
[2022-03-13] MEDS: INSULIN LISPRO 300 UNITS/3 ML VIAL. SQ SCH ×3 (08:00→17:00)
[2022-03-13] MEDS: metFORMIN 500 MG TABLET PO SCH ×2 (08:00→17:39)
[2022-03-13] MEDS: LOSARTAN POTASSIUM 50 MG TABLET. PO SCH (09:00)
[2022-03-13] MEDS: FLUTICASONE 50MCG/NASAL SPRAY 16GM BOTTLE. NS SCH (09:00)
[2022-03-13] MEDS: LACTOBACILLUS RHAMNOSUS GG 1 CAPSULE. PO SCH ×2 (09:00→20:22)
[2022-03-13] MEDS: EMPAGLIFLOZIN 25 MG TABLET. PO SCH (09:01)
[2022-03-13] MEDS: FENOFIBRATE,MICRONIZED 134 MG CAPSULE PO SCH (09:01)
[2022-03-13] MEDS: METOPROLOL SUCC 24HR ER 25 MG TAB.ER.24H. PO SCH (09:02)
[2022-03-13] MEDS: ASPIRIN CHEWABLE 81 MG TABLET. PO SCH (09:02)
[2022-03-13] MEDS: glipiZIDE 5 MG TABLET PO SCH ×2 (09:05→17:31)
[2022-03-13] MEDS ORDERED: DICYCLOMINE 20 MG/2 ML VIAL. IM PRN (12:00)
--- NOTE | 2022-03-13 12:15 | PDOC ---
Infectious Disease Note Subjective Subjective pt is feeling good ROS ROS no n/v/d/sob Vital Sign Vital Signs Vital Signs Date Time Temp Pulse Resp B/P (MAP) Pulse Ox O2 Delivery O2 Flow Rate FiO2 03/13/22 09:02 103 127/64 03/13/22 09:00 24 98 Nasal Cannula 3.0 03/13/22 08:00 97.7 97.7 Physical Exam PHYSICAL EXAM GENERAL: Alert, oriented x 3 male, tired appearing, lying in bed comfortably, in no acute distress. HEENT: Normocephalic, atraumatic. Anicteric. No thrush. NECK: Supple. LUNGS: Clear bilaterally. No wheezing. HEART: S1, S2. No gallops or murmurs. ABDOMEN: Soft, nontender, nondistended, no rebound and no guarding. Byrne in place EXTREMITIES: No edema, no cyanosis. DERMATOLOGIC: Warm, dry, no generalized rash. NEUROLOGIC: Alert and oriented x 3, grossly nonfocal. PSYCHIATRIC: Calm and cooperative. PIV clean. Labs Lab Laboratory Tests Test 03/12/22 12:22 03/12/22 15:46 03/12/22 17:43 03/12/22 21:46 Glucose (Fingerstick) 188 mg/dL (70-99) 163 mg/dL (70-99) 156 mg/dL (70-99) Lactic Acid Level 0.7 mmol/L (0.4-2.0) Test 03/13/22 05:45 03/13/22 08:26 03/13/22 11:35 White Blood Count 10.1 x10^3/uL (4.0-11.0) Red Blood Count 4.38 x10^6/uL (4.30-5.70) Hemoglobin 12.0 g/dL (13.0-17.5) Hematocrit 35.8 % (39.0-53.0) Mean Corpuscular Volume 82 fL (79-100) Mean Corpuscular Hemoglobin 27 pg (25-35) Mean Corpuscular Hemoglobin Concent 33 g/dL (31-37) Red Cell Distribution Width 15.3 % (11.5-14.5) Platelet Count 110 x10^3/uL (140-400) Neutrophils (%) (Auto) 85 % (31-73) Lymphocytes (%) (Auto) 7 % (24-48) Monocytes (%) (Auto) 8 % (0-9) Eosinophils (%) (Auto) 0 % (0-3) Basophils (%) (Auto) 0 % (0-3) Neutrophils # (Auto) 8.6 x10^3/uL (1.8-7.7) Lymphocytes # (Auto) 0.7 x10^3/uL (1.0-4.8) Monocytes # (Auto) 0.8 x10^3/uL (0.0-1.1) Eosinophils # (Auto) 0.0 x10^3/uL (0.0-0.7) Basophils # (Auto) 0.0 x10^3/uL (0.0-0.2) Sodium Level 136 mmol/L (136-145) Potassium Level 4.1 mmol/L (3.5-5.1) Chloride Level 105 mmol/L (98-107) Carbon Dioxide Level 18 mmol/L (21-32) Anion Gap 13 (6-14) Blood Urea Nitrogen 25 mg/dL (8-26) Creatinine 1.5 mg/dL (0.7-1.3) Estimated GFR (Cockcroft-Gault) 48.6 Glucose Level 131 mg/dL (70-99) Calcium Level 7.8 mg/dL (8.5-10.1) Glucose (Fingerstick) 119 mg/dL (70-99) 152 mg/dL (70-99) Micro Microbiology 03/10/22 Urine Culture - Final, Complete Escherichia Coli Objective Assessment IMPRESSION: 1. Pyelonephritis. 2. Leukocytosis. 3. Urinary tract infection. 4. History of kidney stone. 5. History of diverticulitis. 6. Hyperglycemia. 7. Acute kidney injury. 8. Thrombocytopenia. Plan Plan of Care Continue Levaquin but renal dosing. Discussed with pharmacy. Monitor urine and blood culture Continue supportive care Thank you for this consult ALLY GARCIA MD March 13, 2022 12:15
--- NOTE | 2022-03-13 13:27 | PDOC ---
[employer] [facility] PROGRESS NOTE Date of Service DOS: DATE: 03/13/22 TIME: 13:23 Chief Complaint Chief Complaint COVID infection Severe sepsis Pyelonephritis Leukocytosis Hyperglycemia History of the following; CAD, diabetes, hypertension, hyperlipidemia, right arm surgery, cardiac stents x 3. BLANCA due to vasomotor nephropathy Thrombocytopenia Lymphopenia Start Flomax Voiding trial today and possible DC Byrne Will hold Effient and observe platelet trend Continue SCD History of Present Illness History of Present Illness 03/13/2022 No acute events overnight. Patient seen examined bedside. Creatinine trending down to 1.5. Patient COVID PCR returned positive. Patient saturating 97% on 3 L nasal cannula. Not dyspneic upon my encounter. Upon further questioning before removing his Byrne patient does describe BPH symptoms before admission. Describes frequency and incomplete evacuation. And also weak stream. Will attempt voiding trial today and start him on Flomax. Patient will likely need 6-minute walk test before discharge. Patient's chart, labs, images were reviewed and discussed with RN 03/12/2022 Patient seen and examined in ICU He became septic yesterday so I transferred him down His is present today Currently getting IV Levaquin ID consult pending Had a temperature of 103.8 but it is resolving now after Tylenol and ice He was on nonrebreather last night but now we have him down to O2 per nasal cannula Blood pressures are improving Discussed with RN Chart reviewed Vitals/I&O Vitals/I&O: Vital Signs Date Time Temp Pulse Resp B/P (MAP) Pulse Ox O2 Delivery O2 Flow Rate FiO2 03/13/22 09:02 103 127/64 03/13/22 09:00 24 98 Nasal Cannula 3.0 03/13/22 08:00 97.7 97.7 I & O 03/12/22 03/12/22 03/13/22 15:00 23:00 07:00 Intake Total 1000 ml 2736 ml 1705 ml Output Total 600 ml 1800 ml 1875 ml Balance 400 ml 936 ml -170 ml Physical Exam Physical Exam: GENERAL: Alert, oriented x 3 male, tired appearing, lying in bed comfortably, in no acute distress. HEENT: Normocephalic, atraumatic. Anicteric. No thrush. NECK: Supple. LUNGS: Clear bilaterally. No wheezing. HEART: S1, S2. No gallops or murmurs. ABDOMEN: Soft, nontender, nondistended, no rebound and no guarding. Byrne in place EXTREMITIES: No edema, no cyanosis. DERMATOLOGIC: Warm, dry, no generalized rash. NEUROLOGIC: Alert and oriented x 3, grossly nonfocal. PSYCHIATRIC: Calm and cooperative. PIV clean. General: mild distress, Other (Very weak seems depressed) Heart: Regular rate Lungs: Clear Abdomen: Normal bowel sounds Extremities: No clubbing Skin: No rashes Labs Labs: Laboratory Tests Test 03/12/22 15:46 03/12/22 17:43 03/12/22 21:46 03/13/22 05:45 Lactic Acid Level 0.7 mmol/L (0.4-2.0) Glucose (Fingerstick) 163 mg/dL (70-99) 156 mg/dL (70-99) White Blood Count 10.1 x10^3/uL (4.0-11.0) Red Blood Count 4.38 x10^6/uL (4.30-5.70) Hemoglobin 12.0 g/dL (13.0-17.5) Hematocrit 35.8 % (39.0-53.0) Mean Corpuscular Volume 82 fL (79-100) Mean Corpuscular Hemoglobin 27 pg (25-35) Mean Corpuscular Hemoglobin Concent 33 g/dL (31-37) Red Cell Distribution Width 15.3 % (11.5-14.5) Platelet Count 110 x10^3/uL (140-400) Neutrophils (%) (Auto) 85 % (31-73) Lymphocytes (%) (Auto) 7 % (24-48) Monocytes (%) (Auto) 8 % (0-9) Eosinophils (%) (Auto) 0 % (0-3) Basophils (%) (Auto) 0 % (0-3) Neutrophils # (Auto) 8.6 x10^3/uL (1.8-7.7) Lymphocytes # (Auto) 0.7 x10^3/uL (1.0-4.8) Monocytes # (Auto) 0.8 x10^3/uL (0.0-1.1) Eosinophils # (Auto) 0.0 x10^3/uL (0.0-0.7) Basophils # (Auto) 0.0 x10^3/uL (0.0-0.2) Sodium Level 136 mmol/L (136-145) Potassium Level 4.1 mmol/L (3.5-5.1) Chloride Level 105 mmol/L (98-107) Carbon Dioxide Level 18 mmol/L (21-32) Anion Gap 13 (6-14) Blood Urea Nitrogen 25 mg/dL (8-26) Creatinine 1.5 mg/dL (0.7-1.3) Estimated GFR (Cockcroft-Gault) 48.6 Glucose Level 131 mg/dL (70-99) Calcium Level 7.8 mg/dL (8.5-10.1) Test 03/13/22 08:26 03/13/22 11:35 Glucose (Fingerstick) 119 mg/dL (70-99) 152 mg/dL (70-99) Assessment and Plan Assessmemt and Plan Problems Medical Problems: (1) Acute pyelonephritis Status: Acute (2) Hyperglycemia Status: Acute Comment Review of Relevant I have reviewed the following items lety (where applicable) has been applied. Medications: Current Medications Medications (Trade) Dose Ordered Sig/Tristen Route PRN Reason Start Time Stop Time Status Last Admin Dose Admin Metformin HCl (Glucophage) 1,000 mg BIDWMEALS PO 03/13/22 08:00 03/13/22 08:00 Linagliptin (Tradjenta) 5 mg DAILY@1700 PO 03/12/22 17:00 03/12/22 17:37 Levofloxacin (Levaquin) 500 mg DAILY06 PO 03/13/22 06:00 03/13/22 08:57 Sodium Chloride 1,000 ml @ 100 mls/hr Q10H IV 03/12/22 18:00 03/13/22 03:29 Justifications for Admission Other Justification MONO REESE MD March 13, 2022 13:27
[2022-03-13] MEDS: LINAGLIPTIN 5 MG TABLET PO SCH (17:39)
[2022-03-13] MEDS ORDERED: BENZOCAINE/MENTHOL LOZENGE. PO PRN (19:30)
[2022-03-13] MEDS: ATORVASTATIN CALCIUM 40 MG TABLET. PO SCH (20:22)
[2022-03-13] MEDS: TAMSULOSIN 0.4 MG CAP.ER.24H. PO SCH (20:22)
[2022-03-14] VITALS: BP 131/74
[2022-03-14 04:00] VITALS: BP 144/79
[2022-03-14 05:59] LABS: BASO % 0 % (0-3); EOS # 0.1 x10^3/uL (0.0-0.7); EOS % 1 % (0-3); HEMOGLOBIN 12.8 g/dL (13.0-17.5); LYMPH # 0.7 x10^3/uL (1.0-4.8); LYMPH % 9 % (24-48); MEAN CORPUSCULAR HEMOGLOBIN 28 pg (25-35); MEAN CORPUSCULAR HGB CONC 35 g/dL (31-37); MEAN CORPUSCULAR VOLUME 80 fL (79-100); MONO # 0.7 x10^3/uL (0.0-1.1); MONO % 10 % (0-9); NEUT # 5.8 x10^3/uL (1.8-7.7); NEUT % 80 % (31-73); PLATELET COUNT 133 x10^3/uL (140-400); RED BLOOD COUNT 4.61 x10^6/uL (4.30-5.70); RED CELL DISTRIBUTION WIDTH 15.4 % (11.5-14.5); WHITE BLOOD COUNT 7.3 x10^3/uL (4.0-11.0)
[2022-03-14 06:07] LABS: CALCIUM 8.5 mg/dL (8.5-10.1); CREATININE 1.3 mg/dL (0.7-1.3); GFR 57.3; POTASSIUM 4.1 mmol/L (3.5-5.1)
[2022-03-14 08:00] VITALS: BP 111/69
[2022-03-14] MEDS: INSULIN LISPRO 300 UNITS/3 ML VIAL. SQ SCH ×2 (08:00→12:00)
[2022-03-14] MEDS: glipiZIDE 5 MG TABLET PO SCH (08:22)
[2022-03-14] MEDS: EMPAGLIFLOZIN 25 MG TABLET. PO SCH (08:22)
[2022-03-14] MEDS: LOSARTAN POTASSIUM 50 MG TABLET. PO SCH (08:24)
[2022-03-14] MEDS: FENOFIBRATE,MICRONIZED 134 MG CAPSULE PO SCH (08:25)
[2022-03-14] MEDS: LACTOBACILLUS RHAMNOSUS GG 1 CAPSULE. PO SCH (08:25)
[2022-03-14] MEDS: metFORMIN 500 MG TABLET PO SCH (08:25)
[2022-03-14 08:26] VITALS: BP 111/69
[2022-03-14] MEDS: METOPROLOL SUCC 24HR ER 25 MG TAB.ER.24H. PO SCH (08:26)
[2022-03-14] MEDS: ASPIRIN CHEWABLE 81 MG TABLET. PO SCH (08:26)
[2022-03-14] MEDS ORDERED: TAMSULOSIN 0.4 MG CAP.ER.24H. PO SCH (09:00)
[2022-03-14] MEDS: ACETAMINOPHEN 325 MG TABLET. PO PRN (11:36)
[2022-03-14] MEDS: FLUTICASONE 50MCG/NASAL SPRAY 16GM BOTTLE. NS SCH (11:36)
[2022-03-14] MEDS ORDERED: LEVO500T9 PO (11:38)
[2022-03-14] MEDS ORDERED: BENZ200C47 PO (11:38)
[2022-03-14] MEDS ORDERED: BENZ1LOZ4 PO (11:38)
[2022-03-14] MEDS ORDERED: TAMS0.4C97 PO (11:38)
--- NOTE | 2022-03-14 11:40 | DISCH ---
DISCHARGE INSTRUCTIONS Condition on Discharge Condition on Discharge: Stable Activity After Discharge Activity Instructions for Disc: Activity as tolerated Lifting Instructions after Dis: No pulling or pushing, Do not lift >10 pounds, Add. restrict see below Exercise Instruction after Dis: Progress as tolerated Driving Instructions after Dis: Other, see below Weight Bearing Status after Di: As tolerated Diet after Discharge Diet after Discharge: Cardiac, Diabetic No Calorie Level Diet Texture: Regular Liquid Texture: Thin Liquid Swallowing Supervision: None needed Wound Incision Care Wound/Incision Care: May get incision wet Checks after Discharge Checks after discharge: Check blood press - daily, Check blood sugar, ac/hs Contacting the DR. after DC Call your doctor for: If your condition worsens Follow-Up Follow up with: PCP within 2 weeks of discharge Follow Up With: Auto Phone Installer as needed or as scheduled Treatment/Equipment after DC Adaptive Equipment Issued: None MONO REESE MD March 14, 2022 11:40
--- NOTE | 2022-03-14 12:36 | PDOC ---
Infectious Disease Note Subjective Subjective pt is feeling good ROS ROS no n/v/d/ Vital Sign Vital Signs Vital Signs Date Time Temp Pulse Resp B/P (MAP) Pulse Ox O2 Delivery O2 Flow Rate FiO2 03/14/22 09:00 Room Air 03/14/22 08:26 92 111/69 03/14/22 08:00 98.7 23 98 98.7 03/14/22 04:00 3.0 Physical Exam PHYSICAL EXAM GENERAL: Alert, oriented x 3 male, tired appearing, lying in bed comfortably, in no acute distress. HEENT: Normocephalic, atraumatic. Anicteric. No thrush. NECK: Supple. LUNGS: Clear bilaterally. No wheezing. HEART: S1, S2. No gallops or murmurs. ABDOMEN: Soft, nontender, nondistended, no rebound and no guarding. Byrne in place EXTREMITIES: No edema, no cyanosis. DERMATOLOGIC: Warm, dry, no generalized rash. NEUROLOGIC: Alert and oriented x 3, grossly nonfocal. PSYCHIATRIC: Calm and cooperative. PIV clean. Labs Lab Laboratory Tests Test 03/13/22 17:27 03/13/22 21:01 03/14/22 05:30 03/14/22 05:35 Glucose (Fingerstick) 144 mg/dL (70-99) 179 mg/dL (70-99) Sodium Level 138 mmol/L (136-145) Potassium Level 4.1 mmol/L (3.5-5.1) Chloride Level 104 mmol/L (98-107) Carbon Dioxide Level 21 mmol/L (21-32) Anion Gap 13 (6-14) Blood Urea Nitrogen 22 mg/dL (8-26) Creatinine 1.3 mg/dL (0.7-1.3) Estimated GFR (Cockcroft-Gault) 57.3 Glucose Level 155 mg/dL (70-99) Calcium Level 8.5 mg/dL (8.5-10.1) Magnesium Level 2.2 mg/dL (1.8-2.4) White Blood Count 7.3 x10^3/uL (4.0-11.0) Red Blood Count 4.61 x10^6/uL (4.30-5.70) Hemoglobin 12.8 g/dL (13.0-17.5) Hematocrit 37.0 % (39.0-53.0) Mean Corpuscular Volume 80 fL (79-100) Mean Corpuscular Hemoglobin 28 pg (25-35) Mean Corpuscular Hemoglobin Concent 35 g/dL (31-37) Red Cell Distribution Width 15.4 % (11.5-14.5) Platelet Count 133 x10^3/uL (140-400) Neutrophils (%) (Auto) 80 % (31-73) Lymphocytes (%) (Auto) 9 % (24-48) Monocytes (%) (Auto) 10 % (0-9) Eosinophils (%) (Auto) 1 % (0-3) Basophils (%) (Auto) 0 % (0-3) Neutrophils # (Auto) 5.8 x10^3/uL (1.8-7.7) Lymphocytes # (Auto) 0.7 x10^3/uL (1.0-4.8) Monocytes # (Auto) 0.7 x10^3/uL (0.0-1.1) Eosinophils # (Auto) 0.1 x10^3/uL (0.0-0.7) Basophils # (Auto) 0.0 x10^3/uL (0.0-0.2) Test 03/14/22 08:56 03/14/22 11:56 Glucose (Fingerstick) 146 mg/dL (70-99) 129 mg/dL (70-99) Micro Microbiology 03/10/22 Urine Culture - Final, Complete Escherichia Coli Objective Assessment IMPRESSION: 1. Pyelonephritis. 2. Leukocytosis. 3. Urinary tract infection. 4. History of kidney stone. 5. History of diverticulitis. 6. Hyperglycemia. 7. Acute kidney injury. 8. Thrombocytopenia. Plan Plan of Care change antibiotics to po ok to d/c ALLY GARCIA MD March 14, 2022 12:36
--- NOTE | 2022-03-14 13:34 | NUR ---
Pt discharged home. Discharge paperwork provided. Pt taken to car via w/c accompanied by nurse and pts . Pt to be transported home by .
[2022-03-15] MEDS ORDERED: PRASUGREL 10 MG TABLET. PO SCH (08:00)
--- NOTE | 2022-03-18 15:07 | PDOC3 ---
[facility]-Discharge Summary Date of Admission: Date of Admission: March 11, 2022 Date of Discharge: Date of Discharge: March 14, 2022 Discharge Diagnosis: Discharge Diagnosis: COVID infection Severe sepsis Pyelonephritis Leukocytosis Hyperglycemia History of the following; CAD, diabetes, hypertension, hyperlipidemia, right arm surgery, cardiac stents x 3. BLANCA due to vasomotor nephropathy Thrombocytopenia Lymphopenia Consults: Consults: per ID: change antibiotics to po ok to d/c Hospital Course: Hospital Course: By day of discharge patient was clinically stable and ready to go home. Patient did not need any home oxygen. Patient had Byrne removed before day of discharge and voided well after voiding trial. He will complete a 5-day course of levofloxacin and follow-up closely with his urologist. Effient was also resumed after his platelet it was stable by time of discharge. Rest of hospital course was uneventful. 03/13/2022 No acute events overnight. Patient seen examined bedside. Creatinine trending down to 1.5. Patient COVID PCR returned positive. Patient saturating 97% on 3 L nasal cannula. Not dyspneic upon my encounter. Upon further questioning before removing his Byrne patient does describe BPH symptoms before admission. Describes frequency and incomplete evacuation. And also weak stream. Will attempt voiding trial today and start him on Flomax. Patient will likely need 6-minute walk test before discharge. Patient's chart, labs, images were reviewed and discussed with RN 03/12/2022 Patient seen and examined in ICU He became septic yesterday so I transferred him down His is present today Currently getting IV Levaquin ID consult pending Had a temperature of 103.8 but it is resolving now after Tylenol and ice He was on nonrebreather last night but now we have him down to O2 per nasal cannula Blood pressures are improving Discussed with RN Chart reviewed 56-year-old male who has diabetes, CAD, hypertension, hyperlipidemia. He presents with abdominal pain that started about 4 hours prior to arrival to the ER. He had associated nausea, worse with food, better with no food. We did lab and imaging. He has pyelonephritis. We admitted the patient with pyelonephritis and hyperglycemia. We gave him IV antibiotics, fluids and insulin. Disposition: Disposition/Orders: D/C to Home Activity: Activity: Resume previous activity Diet: Diet: Cardiac Medications: Home Meds Active Scripts Benzonatate (BENZONATATE) 200 Mg Capsule, 1 CAP PO TID for cough for 10 Days, #30 CAP 0 Refills Prov:MONO REESE MD 03/14/22 Benzocaine/Menthol (SORE THROAT LOZENGE) 1 Each Lozenge, 1 LUCIA PO PRN Q2HRS PRN for SORE THROAT for 14 Days, #60 LOZENGE 2 Refills Prov:MONO REESE MD 03/14/22 Tamsulosin Hcl (FLOMAX) 0.4 Mg Cap.er.24h, 0.4 MG PO QHS for prostate for 30 Days, #30 CAP.SR 2 Refills Prov:MONO REESE MD 03/14/22 Levofloxacin (LEVOFLOXACIN) 500 Mg Tablet, 500 MG PO DAILY06 for Pyelnephritis for 5 Days, #5 TAB Prov:MONO REESE MD 03/14/22 Atorvastatin Calcium (ATORVASTATIN CALCIUM) 40 Mg Tablet, 1 TAB PO DAILY for cholesterol, #30 TAB 5 Refills Prov:GEMMA NOYOLA MD 04/04/19 Fenofibrate (FENOFIBRATE) 160 Mg Tablet, 1 TAB PO DAILY for triglycerides for 30 Days, #30 TAB 5 Refills Prov:GEMMA NOYOLA MD 12/09/18 Glipizide (GLIPIZIDE) 5 Mg Tablet, 5 MG PO BIDBFRMEAL for diabetes for 30 Days, #60 TAB Prov:GEMMA NOYOLA MD 12/09/18 Aspirin (ASPIRIN EC) 81 Mg Tablet.dr, 81 MG PO DAILYWBKFT for blood thinner for 30 Days, #30 TAB.SR Prov:GEMMA NOYOLA MD 12/09/18 Metoprolol Succinate (METOPROLOL SUCCINATE ( XL )) 25 Mg Tab.er.24h, 25 MG PO DAILY for heart for 30 Days, #30 TAB.SR Prov:GEMMA NOYOLA MD 12/09/18 Prasugrel Hcl (EFFIENT) 10 Mg Tablet, 10 MG PO DAILYWBKFT for blood thinner MDD 30 for 30 Days, #30 TAB Prov:GEMMA NOYOLA MD 12/09/18 Reported Medications Sitagliptin Phosphate (JANUVIA) 100 Mg Tablet, 1 TAB PO DAILY for Diabetes 03/11/22 Fluticasone Propionate (FLUTICASONE PROPIONATE NASAL SPRAY) 16 Gm [place].susp, 2 SPRAYS NS DAILY for Allergies 03/11/22 Losartan Potassium (Losartan Potassium) 50 Mg Tablet, 1 TAB PO DAILY for HTN 03/11/22 Empagliflozin (JARDIANCE) 25 Mg Tablet, 25 MG PO DAILY for Type 2 diabetes, TAB 03/11/22 Metformin Hcl (METFORMIN HCL) 1,000 Mg Tablet, 1000 MG PO BIDWMEALS for AntiDiabetic, TAB 03/11/22 Discontinued Scripts Tamsulosin Hcl (FLOMAX) 0.4 Mg Cap.er.24h, 0.4 MG PO QHS for bph for 30 Days, #30 CAP.SR Prov:SEJAL BRUMFIELD MD 04/06/19 Scheduled Aspirin (Aspirin Ec), 81 MG PO DAILYWBKFT Atorvastatin Calcium (Atorvastatin Calcium), 1 TAB PO DAILY Benzonatate (Benzonatate), 1 CAP PO TID Empagliflozin (Jardiance), 25 MG PO DAILY, (Reported) Fenofibrate (Fenofibrate), 1 TAB PO DAILY Fluticasone Propionate (Fluticasone Propionate Nasal [place]), 2 SPRAYS NS DAILY, (Reported) Glipizide (Glipizide), 5 MG PO BIDBFRMEAL Levofloxacin (Levofloxacin), 500 MG PO DAILY06 Losartan Potassium (Losartan Potassium), 1 TAB PO DAILY, (Reported) Metformin Hcl (Metformin Hcl), 1,000 MG PO BIDWMEALS, (Reported) Metoprolol Succinate (Metoprolol Succinate ( Xl )), 25 MG PO DAILY Prasugrel Hcl (Effient), 10 MG PO DAILYWBKFT Sitagliptin Phosphate (Januvia), 1 TAB PO DAILY, (Reported) Tamsulosin Hcl (Flomax), 0.4 MG PO QHS Scheduled PRN Benzocaine/Menthol (Sore Throat Lozenge), 1 LUCIA PO PRN Q2HRS PRN for SORE THROAT Discontinued Medications Tamsulosin Hcl (Flomax), 0.4 MG PO QHS Total Time: Total Time: Total time spent was 34 minutes in preparing scripts, discharge planning with [facility] and RN and preparing this discharge summary Patient seen and examined on day of discharge. No acute abnormal findings. Justicifation of Admission Dx: Justifications for Admission: Justification of Admission Dx: Yes Sepsis: Infection MONO REESE MD March 18, 2022 15:07
== END 2022-03-14 13:00 | disposition home or self-care (01) | DRG 871 ==
LOC: ER 19:37 → 4 NORTH 22:47 → 1 WEST ICU 03-12 07:47
PROVIDERS: ADMIT Student in an Organized Health Care Education/Training Program; ATTEND Student in an Organized Health Care Education/Training Program
DX: A41.89 Other specified sepsis (principal); N17.0 Acute kidney failure with tubular necrosis; U07.1 COVID-19; N10 Acute pyelonephritis; D69.6 Thrombocytopenia, unspecified; D72.810 Lymphocytopenia; E11.65 Type 2 diabetes mellitus with hyperglycemia; E78.00 Pure hypercholesterolemia, unspecified; E78.5 Hyperlipidemia, unspecified; I10 Essential (primary) hypertension; I25.10 Atherosclerotic heart disease of native coronary artery without angina pectoris; N40.0 Benign prostatic hyperplasia without lower urinary tract symptoms; R65.20 Severe sepsis without septic shock; Z82.49 Family history of ischemic heart disease and other diseases of the circulatory system; Z87.442 Personal history of urinary calculi; Z95.5 Presence of coronary angioplasty implant and graft; Z88.8 Allergy status to other drugs, medicaments and biological substances
CPT/HCPCS: 36415; 71045; 74177; 80048; 80053; 81001; 82962; 83605; 83690; 83735; 85007; 85025; 87077; 87086; 87186; 87426; 96361; 96365; 96366; 96375; 96376; J0780; J1815; J1885; J1956; J2270; J2405; J3010; J7030; Q9967; U0003; 99285-25; G0378